=== PATIENT | male | born 1990 | race Caucasian/White ===

== ENCOUNTER 2022-12-05 20:29 | Inpatient (IN) | payer MEDICARE, SELFPAY ==
[2022-12-05 20:37] VITALS: BP 165/99; PULSE 117; RESP 20; TEMP 36.7; O2SAT 100
--- NOTE | 2022-12-05 20:44 | ED.C_ITS ---
HPI - Psych General: Chief Complaint: Psychiatric Symptoms Stated Complaint: aggressive, AMS, bilateral ankle pain Time Seen by Provider: 12/05/22 20:32 Source: patient and family Mode of arrival: ambulatory Limitations: no limitations History of Present Illness: 31-year-old male is brought in by family per family he has a history of bipolar and over the last week he has had much worse psychosis he states that he has been talking to people are not there having hallucinations severe paranoia he states that he has been doing strange things like trying to warm up bullets in the microwave and has been acting totally different than his normal self here he is very avoidant with me he will not answer any questions or really talk to me at this time. Associated symptoms: Reports auditory hallucinations; Deny depression Review of Systems Const: Denies: fever(s), chills, body aches or change in appetite Eyes: Denies: blurry vision or eye discomfort ENMT: Denies: throat pain or dental pain Card: Denies: chest pain Resp: Denies: dyspnea GI: Denies: abdominal pain, nausea, vomiting or diarrhea : Denies: dysuria Musc: Denies: neck pain or back pain Skin/Breast: Denies: rash Neuro: Denies: headache(s) Psych: Reports: mood swings, paranoia and auditory hallucinations; Denies: depression Mikel/Lymph: Denies: easy bruising All/Imm: Denies: urticaria PFSH ED PFSH: Medical History (Updated 12/05/22 @ 21:27 by Peg Devi MD) Bipolar 1 disorder Social History (Updated 12/05/22 @ 20:47 by Peg Devi MD) Substance/Drug Use: never Physical Exam Const: COMMON NORMALS: patient oriented x3 HENMT: COMMON NORMALS: normocephalic and atraumatic HEAD & SCALP: normo cephalic and atraumatic Eye: COMMON NORMALS: Equal, round and reactive pupils present and EOMs intact bilaterally PUPIL: Yes Equal, round and reactive pupils present Neck/C-Spine: COMMON NORMALS: full ROM and supple Chest: COMMONS NORMALS: normal inspection of the chest and normal palpation of entire chest wall Resp: COMMON NORMALS: normal respiratory effort, No retractions, No use of accessory muscles and clear to auscultation bilaterally AUSCULTATION: clear to auscultation bilaterally Cardio: COMMON NORMALS: regular rate, regular rhythm and No murmurs present (Cardio) RATE: regular rate RHYTHM: regular rhythm GI: COMMON NORMALS: Normal to inspection, nondistended, normoactive bowel sounds present, Soft to palpation, non-tender and no masses PALPATION: Yes Soft to palpation Extremity: COMMON NORMALS: normal to inspection and full ROM Neuro: COMMON NORMALS: patient oriented x3, moves all extremities and no focal motor deficits Psych: COMMON NORMALS: cooperative ATTITUDE: Yes Withdrawn affect present and Yes evasive THOUGHT CONTENT: Yes Hallucination(s) present Skin: COMMON NORMALS: no rashes or lesions noted and no wounds GENERAL SKIN EXAM: no rashes or lesions noted Course Vital Signs: Vital signs: Vital Signs Temperature 98.1 F 12/05/22 20:37 Pulse Rate 117 H 12/05/22 20:37 Respiratory Rate 20 H 12/05/22 20:37 Blood Pressure 165/99 12/05/22 20:37 Pulse Oximetry 100 12/05/22 20:37 Oxygen Delivery Me thod 12/05/22 20:37 MDM - Psych Medical Decision Making Patient presents here with acute psychosis he is under 96-hour hold he is medically cleared I spoke to Dr. Acuña and will admit. Lab Data 12/05/22 21:05 12/05/22 21:05 Laboratory Results WBC 11.6 10^3/uL (4.0-10.0) H 12/05/22 21:05 RBC 4.60 10^6/uL (4.1-5.3) 12/05/22 21:05 Hgb 15.1 g/dL (11.7-16.6) 12/05/22 21:05 Hct 42.9 % (42.0-52.0) 12/05/22 21:05 MCV 93.3 fl (80-94) 12/05/22 21:05 MCH 32.8 pg (28.0-34.0) 12/05/22 21:05 MCHC 35.2 g/dL (30.0-36.0) 12/05/22 21:05 RDW 12.8 % (12.1-15.1) 12/05/22 21:05 Plt Count 311 10^3/cmm (130-400) 12/05/22 21:05 MPV 9.3 fL (7.4-10.4) 12/05/22 21:05 Neut % (Auto) 74.9 % 12/05/22 21:05 Lymph % (Auto) 14.5 % 12/05/22 21:05 Sauk % (Auto) 8.8 % 12/05/22 21:05 Eos % (Auto) 0.7 % 12/05/22 21:05 Baso % (Auto) 0.5 % 12/05/22 21:05 Neut # (Auto) 8.71 10^3/uL (1.8-7.7) H 12/05/22 21:05 Lymph # (Auto) 1.7 10^3/uL (0.8-4.8) 12/05/22 21:05 Sauk # (Auto) 1.0 10^3/uL (0.2-0.9) H 12/05/22 21:05 Eos # (Auto) 0.1 10^3/uL (0.0-0.8) 12/05/22 21:05 Baso # (Auto) 0.1 10^3/uL (0.0-0.1) 12/05/22 21:05 Nucleated RBC % (auto) 0 % 12/05/22 21:05 Nucleated RBCs # 0.0 /100WBC 12/05/22 21:05 Sodium 140 mmol/L (136-145) 12/05/22 21:05 Potassium 3.6 mmol/L (3.5-5.1) 12/05/22 21:05 Chloride 103 mmol/L (98-107) 12/05/22 21:05 Carbon Dioxide 22 mmol/L (22-29) 12/05/22 21:05 Anion Gap 18.6 (5-19) 12/05/22 21:05 BUN 11 mg/dL (6-20) 12/05/22 21:05 Creatinine 0.8 mg/dL (0.7-1.2) 12/05/22 21:05 GFR Calculation 114.3 mL/min (90-130) 12/05/22 21:05 Glucose 109 mg/dL (65-115) 12/05/22 21:05 Calculated Osmolality 290 mOsm/kg (285-295) 12/05/22 21:05 Calcium 9.8 mg/dL (8.5-10.5) 12/05/22 21:05 Total Bilirubin 0.2 mg/dL (0.15-1.2) 12/05/22 21:05 AST 37 U/L (0-40) 12/05/22 21:05 ALT 42 U/L (0-41) H 12/05/22 21:05 Alkaline Phosphatase 78 U/L (40-130) 12/05/22 21:05 Total Protein 7.1 g/dL (6.6-8.7) 12/05/22 21:05 Albumin 4.4 g/dL (3.5-5.2) 12/05/22 21:05 Globulin 2.7 g/dL (1.3-4.6) 12/05/22 21:05 Salicylates < 0.3 mg/dL (3-10) L 12/05/22 21:05 Urine Opiates Screen Negative ng/mL (Negative) 12/05/22 21:14 Acetaminophen < 5.0 ug/mL (10-30) L 12/05/22 21:05 Ur Barbiturates Screen Negative ng/mL (Negative) 12/05/22 21:14 Ur Phencyclidine Scrn Negative ng/mL (Negative) 12/05/22 21:14 Ur Amphetamines Screen Negative ng/mL (Negative) 12/05/22 21:14 U Benzodiazepines Scrn Negative ng/mL (Negative) 12/05/22 21:14 Urine Cocaine Screen Negative ng/mL (Negative) 12/05/22 21:14 U Marijuana (THC) Screen Positive ng/mL (Negative) H 12/05/22 21:14 Ethyl Alcohol < 10 mg/dL (0-10) 12/05/22 21:05 Discharge Plan Discharge Patient Disposition: Admitted As Inpatient Clinical Impression: Acute psychosis Coding Level of Care Code ED Lead Generation Marketing Manager for Clive Navarrete
[2022-12-05] MEDS: LORazepam 2 mg/mL INJ 1 mL IM (21:13)
[2022-12-05] MEDS: ziprasidone 20 mg/mL SDV IM (21:13)
[2022-12-05 21:23] LABS: Basophils # 0.1 10^3/uL (0.0-0.1); Basophils % 0.5 %; Eosinophils # 0.1 10^3/uL (0.0-0.8); Eosinophils % 0.7 %; Hematocrit 42.9 % (42.0-52.0); Hemoglobin 15.1 g/dL (11.7-16.6); Lymphocytes # 1.7 10^3/uL (0.8-4.8); Lymphocytes % 14.5 %; Mean Corpuscular HGB Conc 35.2 g/dL (30.0-36.0); Mean Corpuscular Hemoglobin 32.8 pg (28.0-34.0); Mean Corpuscular Volume 93.3 fl (80-94); Mean Platelet Volume 9.3 fL (7.4-10.4); Monocytes % 8.8 %; Neutrophils # 8.71 10^3/uL (1.8-7.7); Neutrophils % 74.9 %; Nucleated Red Blood Cells % 0 %; Platelet Count 311 10^3/cmm (130-400); Red Cell Distribution Width 12.8 % (12.1-15.1); White Blood Count 11.6 10^3/uL (4.0-10.0)
[2022-12-05 21:31] LABS: Amphetamines Screen Urine Negative (Negative); Barbiturates Screen Urine Negative (Negative); Benzodiazepines Screen Urine Negative (Negative); Cocaine Screen Urine Negative (Negative); Opiate Screen Urine Negative (Negative); PCP Screen Urine Negative (Negative); THC Screen Urine Positive (Negative)
[2022-12-05 21:41] LABS: Acetaminophen < 5.0 ug/mL (10-30); Alanine Aminotransferase 42 U/L (0-41); Albumin Level 4.4 g/dL (3.5-5.2); Alcohol Level < 10 mg/dL (0-10); Alkaline Phosphatase 78 U/L (40-130); Anion Gap 18.6 (5-19); Aspartate Amino Transferase 37 U/L (0-40); Blood Urea Nitrogen 11 mg/dL (6-20); Calcium 9.8 mg/dL (8.5-10.5); Carbon Dioxide 22 mmol/L (22-29); Chloride 103 mmol/L (98-107); Globulin 2.7 g/dL (1.3-4.6); Glomerular Filtration Rate 114.3 mL/min (90-130); Glucose 109 mg/dL (65-115); Osmolality Calculated 290 mOsm/kg (285-295); Potassium 3.6 mmol/L (3.5-5.1); Salicylate < 0.3 mg/dL (3-10); Sodium 140 mmol/L (136-145); Total Bilirubin 0.2 mg/dL (0.15-1.2); Total Protein 7.1 g/dL (6.6-8.7)
--- NOTE | 2022-12-05 22:24 | PC.NURSE ---
12/05/22 at 2152 Patient 96 hour Hold Rights read to the patient and a copy of the same were given to him. Security Karen Baker at bedside at the time rights were read.
[2022-12-05 22:51] VITALS: BP 102/61; PULSE 102; RESP 18; O2SAT 99
[2022-12-05 23:06] VITALS: BP 128/80; PULSE 99; RESP 16; O2SAT 98
--- NOTE | 2022-12-05 23:35 | PC.NURSE ---
31yr.old male admitted to room 150-1 with dx of psychosis. Arrived to unit via w/c from ED accompanied by ED staff and security. Patient is involuntary and was given rights and paperwork in ED by housekeeping coordinator Abimbola. Patient sedated from receiving Ativan 2mg and Geodon 20mg IM in ED for aggressive and agitated behavior. Unable to do full admission assessment due to sedation. Patient was changed into NPU scrubs with full assist from staff. No skin issues present and no contraband found. Per MD report from ED family states patient has a history of bipolar. Over the last week patient has been more psychotic and was talking to people that are not there. Family reports severe paranoia as well. Per family patient's behavior has been bizarre including trying to warm up bullets in the microwave. Patient assisted to be by staff.
--- NOTE | 2022-12-06 00:17 | PC.NURSE ---
12/05/22 @ 214Nancy Daily rn, warehouse laborer ready patient rights with security.
[2022-12-06 00:22] VITALS: BP 102/61; PULSE 100; RESP 18
[2022-12-06 06:00] VITALS: BP 146/88; PULSE 116; RESP 19; TEMP 37.2; O2SAT 96
[2022-12-06] MEDS: acetaminophen 325 mg Tablet 650 MG PO (06:40)
[2022-12-06] MEDS: nicotine 21 mg Patch 1 PATCH TRANSDERMA (10:24)
[2022-12-06 14:00] VITALS: BP 136/72; PULSE 104; RESP 18; TEMP 36.7; O2SAT 98
[2022-12-06] MEDS: paliperidone ER 3 mg Tablet PO (17:18)
--- NOTE | 2022-12-06 17:19 | W.PM.NPUH&PS ---
Providers/Chief Complaint Admitting Physician: Monty Acuña MD Chief Complaint: aggressive, AMS, bilateral ankle pain HPI NPU History of Present Illness Aj Donald is a 31 year old male who was admitted after he had presented to the emergency department with his mother. The patient's mother had reported that the patient had been engaging in unusual behavior such as attempting to warm up bullets in the microwave and stated that he was having more hallucinations and an increase in paranoia. Patient was admitted to the neuropsychiatric unit for further evaluation and treatment. The patient had reported that he had been on a routine dose of risperidone Consta 50 mg once every month for helping with his bipolar disorder. He states that he had indeed been seen at the crisis unit 2 days earlier and had been given a prescription for his risperidone on December 03, 2022. He states that he had given himself the shot in his muscle appropriately but states that he does not feel as if the medication has been helping as well. He had endorsed having periods of time where he has high energy and racing thoughts. He had acknowledged that he had been hospitalized several times in the past in [place] and states that he had recently moved here and has not had any providers to help him with his medication. He had reported that his thoughts were moving fast and he had been increasingly angry. He had reported that he had been struggling with sleep recently and endorsed having some abnormal breast growth secondary to his risperidone. He did at times report that he was hearing voices in his head but did not expand on this information. He had reported being very suspicious of other people's intent and reported that he had been having problems with managing his anger recently. He had not endorsed having thoughts of hurting himself or others. Past psychiatric history: He had reported an extensive history of outpatient treatment in [place] for several years with a reported diagnosis of bipolar disorder. He had reported a past history of trials of medication including oral risperidone and oral Abilify. He reported several previous inpatient hospitalizations in [place] for the past several years stating that he had been initially hospitalized at the age of 20 with manic episodes. Current psychiatric medications: Risperidone Consta 50 mg intramuscularly every 4 weeks. Substance abuse history: Patient reports no history of alcohol or illicit drug use. He had endorsed smoking marijuana regularly. Allergies: He has no known drug allergies Surgical history none reported Medical history:none Family psychiatric history: None reported Social history: He reports being born in [facility] and states that he was raised by his mother. He reports that he had no prior history of sexual physical or emotional abuse. He reported having done well in school and graduated high school and attended some college. He had previously reported having been diagnosed with bipolar disorder as a young adult. He reported no history of legal troubles. He reports being previously engaged but never . He states that he is currently not involved in any relationships. He states he has an 11-year-old daughter that lives with her mother. He states previously working on an [employer] but states that he has been on disability for several years. He states that he moved to [place] as his mother is currently residing here. He has siblings that live in [place] and has infrequent contact with them. Meds NPU Home Medications Medication Instructions Recorded Confirmed Last Taken Type risperidone microspheres 50 mg/2 50 mg IM DIRECTED 12/03/22 12/03/22 11/03/22 History mL intramuscular susp,ext release Allergies Allergy/AdvReac Type Severity Reaction Status Date / Time No Known Allergies Allergy Verified 12/03/22 12:27 [facility] NPU PFS: Medical History (Updated 12/05/22 @ 21:27 by Peg Devi MD) Bipolar 1 disorder Social History (Updated 12/05/22 @ 20:47 by Peg Devi MD) Substance/Drug Use: never Mental Status Exam MSE Comments: The patient was casually dressed with normal hygiene and he appeared to be pacing and impatient. There was clear evidence of psychomotor agitation and he was a limited historian. His mood had been described as a bit angry . His affect was mood congruent and irritable with high intensity noted. His thought process was linear and logical. His speech was normal in volume with slight increase in push and normal prosody. There was some grandiosity noted and some overvalued ideas but some paranoia noted. He did not actively appear to be responding to internal stimuli. He denied any auditory or visual hallucinations currently. His insight and judgment were poor. His impulse control appeared limited at this time. His attention span was poor. His recent and remote memory were grossly intact. Vitals/I&O/Wt Last Vital Signs Temp 98.0 F 12/06/22 14:00 Pulse 104 H 12/06/22 14:00 Resp 18 12/06/22 14:00 BP 136/72 12/06/22 14:00 Pulse Ox 98 12/06/22 14:00 O2 Del Method 12/06/22 14:00 Weight last 48 hrs Weight 90.718 kg Data NPU 12/05/22 21:05 12/05/22 21:05 A&P Assessment and plan (1) Acute psychosis: (2) Bipolar 1 disorder: Plan The patient is a 31-year-old male with a history of bipolar disorder admitted with a history of worsening mood increased irritability and agitation and paranoia despite compliance with his current medication regimen. He would likely benefit from continued inpatient hospitalization. #1. Engage patient in individual milieu and group therapy #2 confirm risperidone Consta 50 mg IM was given on 12/03/2022. #3. We will add additional Invega 3 mg daily with a plan to introduce Invega sustain a as an alternative to target agitation and psychosis. #4. Therapeutic observation 15-minute checks on the unit #5. Recommend sober living treatment at the highest level of care to which the patient is willing to commit Involuntary Hold Information 96 Hour Hold: 96 Hour Involuntary Admission: Yes 96 Hour Hold Ending Date: 12/11/22 96 Hour Hold Ending Time: 20:51 Attestations NPU Medical Necessity Statement*: Inpatient hospitalization is medically necessary and deemed to be the clinically appropriate decision at this time. The patient will likely be in the hospital for over 2 midnights with a likely length of stay of 7 to 10 days. Coding Level of Care Code Acute Code for Chg Fwd Diagnoses Acute psychosis F23 Bipolar 1 disorder F31.9
[2022-12-06 21:29] VITALS: BP 127/73; PULSE 105; RESP 18; TEMP 36.8; O2SAT 96
--- NOTE | 2022-12-06 22:15 | PC.NURSE ---
Patient requesting prn for sleep. Trazodone given. Encouraged patient to return to room and try and lay down and relax. Patient did so.
[2022-12-06] MEDS: trazodone 50 mg Tablet PO (22:16)
--- NOTE | 2022-12-07 01:00 | PC.NURSE ---
Patient resting quietly in bed with eyes closed at this time. No signs of distress. Continues with 15 minute safety checks.
[2022-12-07] MEDS: acetaminophen 325 mg Tablet 650 MG PO (02:50)
--- NOTE | 2022-12-07 02:50 | PC.NURSE ---
Patient up in room and is restless. Stated he was wide awake and was having difficulty returning back to sleep. Encouraged patient to turn off lights and lay down. Discussed relaxation techniques. Patient continued to pace in room and then started pacing in halls. Asked patient if he would like medication for anxiety and at first he stated no. After several minutes patient did state he was willing to try Vistaril for anxiety. Rating it at 8/10. Also requested prn tylenol for discomfort in his right leg with a rating of 5/10. Tylenol and vistaril given as ordered. Spent several minutes with patient discussing his concerns. Patient eventually laid down.
[2022-12-07] MEDS: hyDROXYzine 25 mg Capsule 50 MG PO ×2 (02:51→10:54)
--- NOTE | 2022-12-07 04:29 | PC.NURSE ---
Patient resting quietly with eyes closed at this time. No signs of distress noted.
[2022-12-07 06:00] VITALS: BP 136/82; PULSE 116; RESP 17; TEMP 36.5; O2SAT 95
[2022-12-07] MEDS: nicotine 2 mg Gum BUCCAL ×3 (06:36→13:28)
[2022-12-07] MEDS: OLANZapine 5 mg ODT PO (07:23)
[2022-12-07] MEDS: paliperidone ER 3 mg Tablet PO (08:30)
--- NOTE | 2022-12-07 09:21 | PC.NURSE ---
PRN MEDICATION FOR AGITATION/ANXIETY ADMINISTERED TO PT DO TO ANOTHER PATIENT INTRUSIVE BEHAVIOR.
--- NOTE | 2022-12-07 10:50 | PC.NURSE ---
At about 1050, pt appeared agitated; upset he got woke up for group. Staff talked with pt and reminded him attending groups was something they were encouraged to do while they were here. Pt slamemed things, including the toilet seat in the [facility] bathroom. Pt redirected to his room. Medicated for anxiety/agitation. Pt encouraged to attend group but to not be disruptive. He was disruptive. Pt provided with nicotine gum as well. Discussed way to use the gum. He verbalized his understanding.
[2022-12-07] MEDS: haloperidol 5 mg Tablet PO ×2 (10:54→16:46)
--- NOTE | 2022-12-07 13:41 | W.PM.NPUPNS ---
Subjective NPU Subjective: Patient presented today reporting that he was anxious to leave at some level. We discussed the fact that he is on a 96-hour hold. We reviewed the plan that he and Dr. Lora discussed about switching over to Invega as his baseline medication and he understood and agreed to proceed as is documented in this note. Mental Status Exam MSE Comments: This is an overweight versus obese white male in hospital scrubs with adequate grooming and limited eye contact. No abnormal movements except for mild psychomotor agitation. Cooperative with exam in mild distress. Speech was normal rate and volume. Mood described as irritable, affect congruent. Thought process organized. Thought content: Patient denied suicidal or homicidal ideation, there were no delusions reported but some grandiose thinking and paranoia and possible persecutory delusions. He denied auditory visual hallucinations. Attention and concentration appeared intact and memory was somewhat reliable but none were formally tested. He is alert and oriented x3. Insight judgment and impulse control limited. Vitals/I&O/Wt Last Vital Signs Temp 97.7 F 12/07/22 06:00 Pulse 116 H 12/07/22 06:00 Resp 17 12/07/22 06:00 BP 136/82 12/07/22 06:00 Pulse Ox 95 12/07/22 06:00 O2 Del Method 12/07/22 06:00 Data NPU 12/05/22 21:05 12/05/22 21:05 A&P Assessment and plan (1) Acute psychosis: (2) Bipolar 1 disorder: Plan The patient is a 31-year-old male with a history of bipolar disorder admitted with a history of worsening mood increased irritability and agitation and paranoia despite compliance with his current medication regimen. He would likely benefit from continued inpatient hospitalization. #1. Engage patient in individual milieu and group therapy #2 confirm risperidone Consta 50 mg IM was given on 12/03/2022. #3. We will add additional Invega 3 mg daily with a plan to introduce Invega Sustenna a as an alternative to target agitation and psychosis. #4. Therapeutic observation 15-minute checks on the unit #5. Recommend sober living treatment at the highest level of care to which the patient is willing to commit Involuntary Hold Information 96 Hour Hold: 96 Hour Involuntary Admission: Yes 96 Hour Hold Ending Date: 12/11/22 96 Hour Hold Ending Time: 20:51 Attestations NPU Medical Necessity Statement*: Inpatient hospitalization is medically necessary and deemed to be the clinically appropriate decision at this time. We will monitor/initiate medications and make changes as indicated. Likely length of stay of 7 to 10 days. Coding Level of Care Code Acute Code for Chg Fwd Diagnoses Acute psychosis F23 Bipolar 1 disorder F31.9
[2022-12-07 14:00] VITALS: BP 132/79; PULSE 96; RESP 16; TEMP 36.7; O2SAT 97
[2022-12-07] MEDS: diphenhydrAMINE 50 mg Capsule PO (16:46)
[2022-12-07] MEDS: LORazepam 2 mg Tablet PO (16:46)
--- NOTE | 2022-12-07 18:11 | PC.NURSE ---
Pt's mom came to visit him at 1500. They sat in the day room and within five minutes pt was yelling. Staff investigated and informed the pt and visitor, such time was supposed to be therapeutic and if the visit couldn't be conducted appropriately, the visitor would need to leave. By 1515, the pt was again speaking very loudly and seemed to be yelling at his mom rather than engaging with her so the visitor was asked to leave. She and the pt complied. Pt remained agitated; received medication and rested in bed..
[2022-12-07 19:48] VITALS: BP 122/77; PULSE 88; RESP 18; TEMP 36.7; O2SAT 98
[2022-12-08] MEDS: nicotine 2 mg Gum BUCCAL ×4 (02:25→23:26)
--- NOTE | 2022-12-08 02:25 | PC.NURSE ---
Opened vistaril 50mg that patient requested and Zyprexa 5mg for agitation. Patient calmed down and refused both meds.
[2022-12-08 06:00] VITALS: BP 102/72; PULSE 129; RESP 20; TEMP 36.3; O2SAT 98
[2022-12-08] MEDS: paliperidone ER 3 mg Tablet PO (09:16)
--- NOTE | 2022-12-08 11:51 | W.PM.NPUPNS ---
Subjective NPU Subjective: Patient presented today reporting that he is doing okay. We continue to discuss the plan to switch over to Invega. He is endorsing that he is starting to feel the medication getting better. We discussed the possibility of increasing the Invega to 6 mg tomorrow and considering the Invega Sustenna injection on Saturday. Otherwise he denied any new or pressing issues. Mental Status Exam MSE Comments: This is an overweight versus obese white male in hospital scrubs with adequate grooming and limited eye contact. No abnormal movements except for mild psychomotor agitation. Cooperative with exam in mild distress. Speech was normal rate and volume. Mood described as irritable, affect congruent. Thought process organized. Thought content: Patient denied suicidal or homicidal ideation, there were no delusions reported but less grandiose thinking, paranoia and possible persecutory delusions. He denied auditory visual hallucinations. Attention and concentration appeared intact and memory was somewhat reliable but none were formally tested. He is alert and oriented x3. Insight judgment and impulse control limited. Vitals/I&O/Wt Last Vital Signs Temp 97.3 F L 12/08/22 06:00 Pulse 129 H 12/08/22 06:00 Resp 20 H 12/08/22 06:00 BP 102/72 12/08/22 06:00 Pulse Ox 98 12/08/22 06:00 O2 Del Method 12/08/22 06:00 Data NPU 12/05/22 21:05 12/05/22 21:05 A&P Assessment and plan (1) Acute psychosis: (2) Bipolar 1 disorder: Plan The patient is a 31-year-old male with a history of bipolar disorder admitted with a history of worsening mood increased irritability and agitation and paranoia despite compliance with his current medication regimen. He would likely benefit from continued inpatient hospitalization. #1. Engage patient in individual milieu and group therapy #2 confirm risperidone Consta 50 mg IM was given on 12/03/2022. #3. We will add additional Invega 3 mg daily with a plan to introduce Invega Sustenna a as an alternative to target agitation and psychosis. #4. Therapeutic observation 15-minute checks on the unit #5. Recommend sober living treatment at the highest level of care to which the patient is willing to commit Involuntary Hold Information 96 Hour Hold: 96 Hour Involuntary Admission: Yes 96 Hour Hold Ending Date: 12/11/22 96 Hour Hold Ending Time: 20:51 Attestations NPU Medical Necessity Statement*: Inpatient hospitalization is medically necessary and deemed to be the clinically appropriate decision at this time. We will monitor/initiate medications and make changes as indicated. Likely length of stay of 6 to 9 days. Coding Level of Care Code Acute Code for Chg Fwd Diagnoses Acute psychosis F23 Bipolar 1 disorder F31.9
[2022-12-08 14:00] VITALS: BP 121/69; PULSE 85; RESP 16; TEMP 36.6; O2SAT 98
[2022-12-08] MEDS: benzocaine 20% 7 gm 1 APPLIC MUCOUS MEM (17:35)
[2022-12-08 20:00] VITALS: BP 129/61; PULSE 100; RESP 20; TEMP 36.7; O2SAT 96
[2022-12-08] MEDS: hyDROXYzine 25 mg Capsule 50 MG PO (22:49)
[2022-12-08] MEDS: trazodone 50 mg Tablet PO (22:49)
[2022-12-09] MEDS: OLANZapine 5 mg ODT PO (00:27)
[2022-12-09] MEDS: nicotine 2 mg Gum BUCCAL ×7 (01:40→18:47)
[2022-12-09 06:00] VITALS: BP 136/82; PULSE 102; RESP 18; TEMP 36.6; O2SAT 99
[2022-12-09] MEDS: benzocaine 20% 7 gm 1 APPLIC MUCOUS MEM ×2 (07:50→19:51)
[2022-12-09] MEDS: paliperidone ER 3 mg Tablet PO ×2 (07:50→11:25)
--- NOTE | 2022-12-09 07:50 | PC.NURSE ---
orajel 1 application applied to tooth for c/o pain
[2022-12-09 14:00] VITALS: BP 117/80; PULSE 100; RESP 20; TEMP 36.6; O2SAT 97
--- NOTE | 2022-12-09 17:17 | W.PM.NPUPNS ---
Subjective NPU Subjective: Patient presented today reporting clear improvement in how he is thinking. Reporting that his perceptual disturbances seem to have greatly diminished and he feels like he is more himself. We discussed getting clarification on the pharmacokinetics of the Invega Sustenna given the last time the Risperdal Consta was given. He denied any issues taking the increased to 6 mg of Invega. Mental Status Exam MSE Comments: This is an overweight versus obese white male in hospital scrubs with adequate grooming and limited eye contact. No abnormal movements. Cooperative with exam in no acute distress. Speech was normal rate and volume. Mood described as better, affect congruent. Thought process organized. Thought content: Patient denied suicidal or homicidal ideation, there were no delusions reported or noted. He denied auditory visual hallucinations. Attention and concentration appeared intact and memory was somewhat reliable but none were formally tested. He is alert and oriented x3. Insight judgment and impulse control limited, but improving. Vitals/I&O/Wt Last Vital Signs Temp 97.5 F L 12/09/22 20:38 Pulse 101 H 12/09/22 20:38 Resp 20 H 12/09/22 20:38 BP 125/63 12/09/22 20:38 Pulse Ox 97 12/09/22 20:38 O2 Del Method 12/09/22 20:38 Weight last 48 hrs Weight 95.799 kg Data NPU 12/05/22 21:05 12/05/22 21:05 A&P Assessment and plan (1) Acute psychosis: (2) Bipolar 1 disorder: Plan The patient is a 31-year-old male with a history of bipolar disorder admitted with a history of worsening mood increased irritability and agitation and paranoia despite compliance with his current medication regimen. He would likely benefit from continued inpatient hospitalization. #1. Engage patient in individual milieu and group therapy #2 confirm risperidone Consta 50 mg IM was given on 12/03/2022. #3. We added additional Invega 3 mg daily and increased to 6 mg with a plan to introduce Invega Sustenna a as an alternative to target agitation and psychosis possibly tomorrow. #4. Therapeutic observation 15-minute checks on the unit #5. Recommend sober living treatment at the highest level of care to which the patient is willing to commit Involuntary Hold Information 96 Hour Hold: 96 Hour Involuntary Admission: Yes 96 Hour Hold Ending Date: 12/11/22 96 Hour Hold Ending Time: 20:51 Attestations NPU Medical Necessity Statement*: Inpatient hospitalization is medically necessary and deemed to be the clinically appropriate decision at this time. We will monitor/initiate medications and make changes as indicated. Likely length of stay of 3-5 days. Coding Level of Care Code Acute Code for Chg Fwd Diagnoses Acute psychosis F23 Bipolar 1 disorder F31.9
--- NOTE | 2022-12-09 19:55 | PC.NURSE ---
PRN oraljel given as ordered per pt request.
[2022-12-09 20:38] VITALS: BP 125/63; PULSE 101; RESP 20; TEMP 36.4; O2SAT 97
[2022-12-10] MEDS: nicotine 2 mg Gum BUCCAL ×8 (02:28→18:01)
[2022-12-10] MEDS: benzocaine 20% 7 gm 1 APPLIC MUCOUS MEM (05:52)
[2022-12-10 06:00] VITALS: BP 128/76; PULSE 100; RESP 18; TEMP 36.4; O2SAT 100
[2022-12-10] MEDS: paliperidone ER 3 mg Tablet 6 MG PO (08:00)
[2022-12-10 14:00] VITALS: BP 124/80; PULSE 110; RESP 18; TEMP 36.6; O2SAT 98
--- NOTE | 2022-12-10 17:58 | P.NPUPN_ITS ---
Subjective NPU Subjective: Patient presented today reporting that he was feeling better with the Invega. We discussed paliperidone and its relationship to respite all. We discussed the Invega Sustenna injection and progression to the Invega Hafyera. We discussed the risk benefits and alternatives of him having his first loading dose of Invega Sustenna 234 mg IM and he understood and agreed to proceed as is documented in this note. We discussed discharge tomorrow with a plan for follow-up with his next injection due next Saturday. Mental Status Exam MSE Comments: This is an overweight versus obese white male in hospital scrubs with adequate grooming and limited eye contact. No abnormal movements. Cooperative with exam in no acute distress. Speech was normal rate and volume. Mood described as better, affect congruent. Thought process organized. Thought content: Patient denied suicidal or homicidal ideation, there were no delusions reported or noted. He denied auditory visual hallucinations. Attention and concentration appeared intact and memory was reliable but none were formally tested. He is alert and oriented x3. Insight judgment and impulse control improving. Vitals/I&O/Wt Last Vital Signs Temp 98.1 F 12/10/22 20:28 Pulse 97 12/10/22 20:28 Resp 16 12/10/22 20:28 BP 146/80 12/10/22 20:28 Pulse Ox 99 12/10/22 20:28 O2 Del Method 12/10/22 06:00 Data NPU 12/05/22 21:05 12/05/22 21:05 A&P Assessment and plan (1) Acute psychosis: (2) Bipolar 1 disorder: Plan The patient is a 31-year-old male with a history of bipolar disorder admitted with a history of worsening mood increased irritability and agitation and p aranoia despite compliance with his current medication regimen. He would likely benefit from continued inpatient hospitalization. #1. Engage patient in individual milieu and group therapy #2 confirm risperidone Consta 50 mg IM was given on 12/03/2022. #3. We added additional Invega 3 mg daily and increased to 6 mg with a plan to introduce Invega Sustenna 234 mg IM loading dose to the deltoid today. #4. Therapeutic observation 15-minute checks on the unit #5. Recommend sober living treatment at the highest level of care to which the patient is willing to commit Involuntary Hold Information 96 Hour Hold: 96 Hour Involuntary Admission: Yes 96 Hour Hold Ending Date: 12/11/22 96 Hour Hold Ending Time: 20:51 Attestations NPU Medical Necessity Statement*: Inpatient hospitalization is medically necessary and deemed to be the clinically appropriate decision at this time. We will monitor/initiate medications and make changes as indicated. Likely length of stay of 1-3 days. Coding Level of Care Code Acute Code for Chg Fwd Diagnoses Acute psychosis F23 Bipolar 1 disorder F31.9
[2022-12-10] MEDS: paliperidone palmitate 234 mg Syringe IM (19:50)
[2022-12-10 20:28] VITALS: BP 146/80; PULSE 97; RESP 16; TEMP 36.7; O2SAT 99
[2022-12-11] MEDS: nicotine 2 mg Gum BUCCAL ×4 (03:14→10:29)
[2022-12-11 06:00] VITALS: BP 135/78; PULSE 121; RESP 20; TEMP 36.6; O2SAT 98
--- NOTE | 2022-12-11 09:02 | P.NPUDS_ITS ---
Diagnoses at Discharge Discharge Diagnosis (1) Acute psychosis: Status: Resolved (2) Bipolar 1 disorder: Status: Acute Reason for Visit Reason for Visit: aggressive, AMS, bilateral ankle pain Brief History: History of Present Illness Aj Donald is a 31 year old male who was admitted after he had presented to the emergency department with his mother. The patient's mother had reported that the patient had been engaging in unusual behavior such as attempting to warm up bullets in the microwave and stated that he was having more hallucinations and an increase in paranoia. Patient was admitted to the neuropsychiatric unit for further evaluation and treatment. The patient had reported that he had been on a routine dose of risperidone Consta 50 mg once every month for helping with his bipolar disorder. He states that he had indeed been seen at the crisis unit 2 days earlier and had been given a prescription for his risperidone on December 03, 2022. He states that he had given himself the shot in his muscle appropriately but states that he does not feel as if the medication has been helping as well. He had endorsed having periods of time where he has high energy and racing thoughts. He had acknowledged that he had been hospitalized several times in the past in [place] and states that he had recently moved here and has not had any providers to help him with his medication. He had reported that his thoughts were moving fast and he had been increasingly angry. He had reported that he had been struggling with sleep recently and endorsed having some abnormal breast growth secondary to his risperidone. He did at times report that he was hearing voices in his head but did not expand on this information. He had reported being very suspicious of other people's intent and reported that he had been having problems with managing his anger recently. He had not endorsed having thoughts of hurting himself or others. Past psychiatric history: He had reported an extensive history of outpatient treatment in [place] for several years with a reported diagnosis of bipolar disorder. He had reported a past history of trials of medication including oral risperidone and oral Abilify. He reported several previous inpatient hospitalizations in [place] for the past several years stating that he had been initially hospitalized at the age of 20 with manic episodes. Current psychiatric medications: Risperidone Consta 50 mg intramuscularly every 4 weeks. Substance abuse history: Patient reports no history of alcohol or illicit drug use. He had endorsed smoking marijuana regularly. Allergies: He has no known drug allergies Surgical history none reported Medical history:none Family psychiatric history: None reported Social history: He reports being born in [facility] and states that he was raised by his mother. He reports that he had no prior history of sexual physical or emotional abuse. He reported having done well in school and graduated high school and attended some college. He had previously reported having been diagnosed with bipolar disorder as a young adult. He reported no history of legal troubles. He reports being previously engaged but never . He states that he is currently not involved in any relationships. He states he has an 11-year-old daughter that lives with her mother. He states previously working on an [employer] but states that he has been on disability for several years. He states that he moved to [place] as his mother is currently residing here. He has siblings that live in [place] and has infrequent contact with them. Hospital Course Hospital Course He slowly acclimated to the individual, group and milieu therapies provided.? He presented with psychosis and poor success with Consta. We transitioned him to invega and ultimately Invega sustenna with good response. He was able to work with the treatment team to assist with outpatient resources.? He had significant improvement and was able to contract for safety, outside the hospital prior to discharge.? During the hospitalization, patient had routine laboratory studies which were within normal limits except for few outliers.? Additionally there was a general medical evaluation which was also within normal limits and revealed no new acute processes. Discharge Summary: At the time of discharge, he denied psychosis or lethality.? Mood and anxiety were well managed.? Patient endorsed a plan to avoid all drugs of abuse and follow-up with the aftercare recommendations of the treatment team.? Patient was evaluated and deemed to be absent credible lethality, and had achieved the maximum benefit from an inpatient hospitalization, so was discharged. Involuntary Hold Information 96 Hour Hold: 96 Hour Involuntary Admission: Yes 96 Hour Hold Ending Date: 12/11/22 96 Hour Hold Ending Time: 20:51 Mental Status Exam MSE Comments: This is an overweight versus obese white male in hospital scrubs with adequate grooming and limited eye contact. No abnormal movements. Cooperative with exam in no acute distress. Speech was normal rate and volume. Mood described as better, affect congruent. Thought process organized. Thought content: Patient denied suicidal or homicidal ideation, there were no delusions reported or noted. He denied auditory visual hallucinations. Attention and concentration appeared intact and memory was reliable but none were formally tested. He is alert and oriented x3. Insight judgment and impulse control improving. Discharge Data Studies Completed and Pending: Laboratory Results WBC 11.6 10^3/uL (4.0 -10.0) H 12/05/22 21:05 RBC 4.60 10^6/uL (4.1 -5.3) 12/05/22 21:05 Hgb 15.1 g/dL (11.7-1 6.6) 12/05/22 21:05 Hct 42.9 % (42.0-52.0 ) 12/05/22 21:05 MCV 93.3 fl (80-94) 12/05/22 21: MCH 32.8 pg (28.0-34. 0) 12/05/22 21:05 MCHC 35.2 g/dL (30.0-3 6.0) 12/05/22 21:05 RDW 12.8 % (12.1-15.1 ) 12/05/22 21:05 Plt Count 311 10^3/cmm (130 -400) 12/05/22 21:05 MPV 9.3 fL (7.4-10.4) 12/05/22 21:05 Neut % (Auto) 74.9 % 12/05/22 21: Lymph % (Auto) 14.5 % 12/05/22 21:05 [place] % (Auto) 8.8 % 12/05/22 21:05 Eos % (Auto) 0.7 % 12/05/22 21:05 Baso % (Auto) 0.5 % 12/05/22 21:05 Neut # (Auto) 8.71 10^3/uL (1.8 -7.7) H 12/05/22 21:05 Lymph # (Auto) 1.7 10^3/uL (0.8- 4.8) 12/05/22 21:05 [place] # (Auto) 1.0 10^3/uL (0.2- 0.9) H 12/05/22 21:05 Eos # (Auto) 0.1 10^3/uL (0.0- 0.8) 12/05/22 21:05 Baso # (Auto) 0.1 10^3/uL (0.0- 0.1) 12/05/22 21:05 Nucleated RBC % (a uto) 0 % 12/05/22 21:05 Nucleated RBCs # 0.0 /100WBC 12/05/22 21:05 Sodium 140 mmol/L (136-1 45) 12/05/22 21:05 Potassium 3.6 mmol/L (3.5-5 .1) 12/05/22 21:05 Chloride 103 mmol/L (98-10 7) 12/05/22 21:05 Carbon Dioxide 22 mmol/L (22-29) 12/05/22 21:05 Anion Gap 18.6 (5-19) 12/05/22 21:05 BUN 11 mg/dL (6-20) 12/05/22 21:05 Creatinine 0.8 mg/dL (0.7-1. 2) 12/05/22 21:05 GFR Calculation 114.3 mL/min (90- 130) 12/05/22 21:05 Glucose 109 mg/dL (65-115 ) 12/05/22 21:05 Calculated Osmolal ity 290 mOsm/kg (285- 295) 12/05/22 21:05 Calcium 9.8 mg/dL (8.5-10 .5) 12/05/22 21:05 Total Bilirubin 0.2 mg/dL (0.15-1 .2) 12/05/22 21:05 AST 37 U/L (0-40) 12/05/22 21:05 ALT 42 U/L (0-41) H 12/05/22 21:05 Alkaline Phosphata se 78 U/L (40-130) 12/05/22 21:05 Total Protein 7.1 g/dL (6.6-8.7 ) 12/05/22 21:05 Albumin 4.4 g/dL (3.5-5.2 ) 12/05/22 21:05 Globulin 2.7 g/dL (1.3-4.6 ) 12/05/22 21:05 Salicylates < 0.3 mg/dL (3-10 ) L 12/05/22 21:05 Urine Opiates Scre en Negative ng/mL (N egative) 12/05/22 21:14 Acetaminophen < 5.0 ug/mL (10-3 0) L 12/05/22 21:05 Ur Barbiturates Sc reen Negative ng/mL (N egative) 12/05/22 21:14 Ur Phencyclidine S crn Negative ng/mL (N egative) 12/05/22 21:14 Ur Amphetamines Sc reen Negative ng/mL (N egative) 12/05/22 21:14 U Benzodiazepines Scrn Negative ng/mL (N egative) 12/05/22 21:14 Urine Cocaine Scre en Negative ng/mL (N egative) 12/05/22 21:14 U Marijuana (THC) Screen Positive ng/mL (N egative) H 12/05/22 21:14 Ethyl Alcohol < 10 mg/dL (0-10) 12/05/22 21:05 Vitals: Last Vital Signs Temp 97.8 F 12/11/22 06:00 Pulse 121 H 12/11/22 06:00 Resp 20 H 12/11/22 06:00 BP 135/78 12/11/22 06:00 Pulse Ox 98 12/11/22 06:00 O2 Del Method 12/10/22 06:00 Discharge Plan Discharge Patient Disposition: Home Condition: Stable Prescriptions: New Invega Sustenna 156 mg/mL syringe 156 mg IM Q30D Qty: 1 2RF Rx Instructions: Next injection 12/17/2022 loading dose IM deltoid. Then 01/14/2023 then as directed monthly Discontinued risperidone microspheres 50 mg/2 mL Suspension,Extended Rel Recon 50 mg IM DIRECTED Rx Instructions: 50 mg Risperidone Q month Discharge Orders: Discharge Order (Routine); Ordered 12/11/22 Ordered By: Monty Acuña Referrals: [facility] [Outside] - 12/17/22 2:30 pm (With Miguel Huber) Discharge Diet: Regular Discharge Activity: Resume usual activity Patient Instructions: Depression (DC), Anxiety (DC), Opioid Safety Discharge Attestations NPU Time Spent in Discharge Care*: less than 30 min Specific Discharge Activities: Specific discharge activities: educating patient, discussing with complex case manager/social workers/dc planners, documenting/other paperwork and evaluating patient/reviewing data Coding Level of Care Code Acute Chg FW DC note Diagnoses Acute psychosis F23 Bipolar 1 disorder F31.9
--- NOTE | 2022-12-11 10:17 | DCPLANNER ---
IMM completed 12/11/22 @ 1010. Pt was given a copy of rights and he stated he understood his rights.
[2022-12-11 10:23] VITALS: BP 135/78; PULSE 121; RESP 20; TEMP 36.6; O2SAT 98
--- NOTE | 2022-12-11 13:11 | PC.NURSE ---
discharge instruction discussed with patient. pt verbalized understanding and compliance. pt reviewed and approved that personal belonging returned to patient as correct. pt left via parent and pov.
== END 2022-12-11 12:42 | disposition home or self-care (01) | DRG 885 ==
LOC: ER 21:27 → NP 22:16
PROVIDERS: Admitting Provider Psychiatry & Neurology Psychiatry; Emergency Provider Emergency Medicine; Visit Provider Psychiatry & Neurology Psychiatry
DX: F31.9 Bipolar disorder, unspecified (principal)
CPT/HCPCS: 36415; 80053; 80306; 80307; 85025; 96372; 97150; 97165; 99238; 99285; J2060; J3486; Q0163

== ENCOUNTER 2023-01-06 22:29 | Inpatient (IN) | payer MEDICARE, SELFPAY ==
[2023-01-06 22:45] VITALS: BMI 30.1
--- NOTE | 2023-01-06 23:04 | PC.NURSE ---
Pt arrives in handcuffs by police. ER has not placed restraints on this pt. Cuffs removed by officers. NO further restraint required at this time.
[2023-01-06] MEDS: ziprasidone 20 mg/mL SDV IM (23:20)
[2023-01-06] MEDS: LORazepam 2 mg/mL INJ 1 mL IM (23:20)
[2023-01-06 23:41] LABS: Bilirubin Urine Neg (Negative); Blood Urine Neg (Negative); Glucose Urine UA Norm (Normal); Ketones Urine Negative (Negative); Leukocyte Esterase Urine Negative (Negative); Nitrate Urine Negative (Negative); Protein Urine Neg (Negative); Renal Epithelial Cells Urine 1 /hpf; Specific Gravity, Urine 1.005 (1.005-1.030); Squamous Epithelial Cell Urine 0-4 /hpf (0-5); Urine Appearance Clear (CLEAR); Urine Color Colorless (Yellow); Urobilinogen Urine Norm (Negative); WBC Urine 0-4 /hpf (0-5); pH Urine 5 (5-7)
[2023-01-06 23:42] LABS: Oval Fat Bodies Urine TRACE /hpf
[2023-01-06 23:43] LABS: Amphetamines Screen Urine Negative (Negative); Barbiturates Screen Urine Negative (Negative); Benzodiazepines Screen Urine Negative (Negative); Cocaine Screen Urine Negative (Negative); Opiate Screen Urine Negative (Negative); PCP Screen Urine Negative (Negative); THC Screen Urine Positive (Negative)
[2023-01-06 23:44] VITALS: BP 140/104; PULSE 98; RESP 16; TEMP 36.7; O2SAT 100
[2023-01-07 00:03] VITALS: BP 138/70; PULSE 69; RESP 15; O2SAT 100
--- NOTE | 2023-01-07 00:15 | PC.NURSE ---
Pt asleep on his left side on [facility]. PSA at bedside.
--- NOTE | 2023-01-07 00:28 | W.ED.PSYCHS ---
HPI - Psych General: Chief Complaint: Psychiatric Symptoms Stated Complaint: psychiatric Time Seen by Provider: 01/06/23 22:34 Source: patient and police History of Present Illness: 32-year-old male with a history of bipolar disorder. He had a recent admission after a manic episode. He required sedation in the ER, along with psychiatric evaluation and treatment. He presents tonight in handcuffs with law enforcement after an episode of throwing stuff around a family member's house. When law enforcement showed up, he evidently asked that lawn care specialist to shoot him and kill him. Police have written affidavit and so has his mother. On my interview, he will not answer questions for me. He says to me I am not your rell . MD complaint: suicidal ideation Onset (ago): hour(s) Duration: constant History of same: Yes Relieving factors: none Exacerbating factors: none Associated psychiatric symptoms: depression and suicidal ideation Associated symptoms: Reports delusions, depression and suicidal ideation; Deny auditory hallucinations, visual hallucinations or homicidal ideation If self harm: admits thoughts of self harm and has plan Review of Systems General: Reports: ROS unobtainable due to medical condition Psych: Reports: depression and suicidal ideation; Denies: visual hallucinations, auditory hallucinations or homicidal ideation PFS ED PFSH: Medical History Bipolar 1 disorder Psychiatric care Social History Substance/Drug Use: never Physical Exam Const: COMMON NORMALS: alert GENERAL APPEARANCE: not ill appearing and not frail appearing NUTRITIONAL APPEARANCE: overweight ORIENTATION/CONSCIOUSNESS: Yes awake, Yes oriented to person and Yes oriented to place HENMT: COMMON NORMALS: normocephalic, atraumatic and Normal external nose present HEAD & SCALP: normocephalic and atraumatic FACE & SINUS: normal facial exam and face symmetric NOSE: Normal external nose present Eye: COMMON NORMALS: Equal, round and reactive pupils present and EOMs intact bilaterally PUPIL: Yes Equal, round and reactive pupils present Neck/C-Spine: GENERAL: Yes trachea midline Chest: CHEST: Yes Symmetrical chest wall rise Resp: COMMON NORMALS: normal respiratory effort and No use of accessory muscles Cardio: COMMON NORMALS: regular rate and regular rhythm RATE: regular rate RHYTHM: regular rhythm GI: INSPECTION: Yes normal to inspection Neuro: SENSORIUM/ORIENTATION: Yes alert, Yes oriented to person and Yes oriented to place Psych: APPEARANCE: Yes grossly normal ATTITUDE: Yes uncooperative, Yes agitated and Yes aggressive SPEECH: Yes rapid MOOD & AFFECT: Yes irritable THOUGHT PROCESS: Circumstantial thought process present THOUGHT CONTENT: Yes delusions INSIGHT: Limited insight present (Psych) JUDGEMENT: Limited judgement present (Psych) Skin: COMMON NORMALS: no wounds Face to Face: Restrn/Seclusion Events leading up to initiation: Verbalizing threat to self or others Evaluation of patient's immediate situation: Alert and oriented, No signs of physical distress and Signs of psychological distress Patient reaction since intervention applied: De-escalation/no displays of violent/destructive behavior Recent labs reviewed: Yes Review of medications: Yes Patient's current medical/behavioral condition: No new concerns since last ROS Need for restraint or seclusion is: No longer present Attending notified: Attending completed assessment Course Vital Signs: Vital signs: Vital Signs Temperature 98.0 F 01/06/23 23:44 Pulse Rate 69 01/07/23 02:16 Respiratory Rate 15 01/07/23 02:16 Blood Pressure 138/70 01/07/23 02:16 Pulse Oximetry 100 01/07/23 02:16 Oxygen Delivery Me thod Room Air 01/07/23 00:03 MDM - Psych Medical Decision Making Patient was given a dose of IM ketamine followed by Geodon and Ativan intramuscularly as well. He is now resting comfortably. His vitals have been stable. This was done shortly after the patient's arrival, given his prior history of combativeness in the ER, as well as his verbal statements both law enforcement and staff members in the ER. Medically, he is quite stable. Spoke with psychiatry. They are willing to admit. He will be placed under 96-hour hold. Affidavits have been written. Lab Data 01/07/23 00:35 01/07/23 00:35 Laboratory Results WBC 7.6 10^3/uL (4.0-10.0) 01/07/23 00:35 RBC 4.81 10^6/uL (4.1-5.3) 01/07/23 00:35 Hgb 15.3 g/dL (11.7-16.6) 01/07/23 00:35 Hct 45.4 % (42.0-52.0) 01/07/23 00:35 MCV 94.4 fl (80-94) H 01/07/23 00:35 MCH 31.8 pg (28.0-34.0) 01/07/23 00:35 MCHC 33.7 g/dL (30.0-36.0) 01/07/23 00:35 RDW 12.5 % (12.1-15.1) 01/07/23 00:35 Plt Count 307 10^3/cmm (130-400) 01/07/23 00:35 MPV 9.1 fL (7.4-10.4) 01/07/23 00:35 Neut % (Auto) 66.7 % 01/07/23 00:35 Lymph % (Auto) 19.1 % 01/07/23 00:35 [place] % (Auto) 12.3 % 01/07/23 00:35 Eos % (Auto) 0.5 % 01/07/23 00:35 Baso % (Auto) 0.7 % 01/07/23 00:35 Neut # (Auto) 5.07 10^3/uL (1.8-7.7) 01/07/23 00:35 Lymph # (Auto) 1.5 10^3/uL (0.8-4.8) 01/07/23 00:35 [place] # (Auto) 0.9 10^3/uL (0.2-0.9) 01/07/23 00:35 Eos # (Auto) 0.0 10^3/uL (0.0-0.8) 01/07/23 00:35 Baso # (Auto) 0.1 10^3/uL (0.0-0.1) 01/07/23 00:35 Nucleated RBC % (auto) 0 % 01/07/23 00:35 Nucleated RBCs # 0.0 /100WBC 01/07/23 00:35 Sodium 136 mmol/L (136-145) 01/07/23 00:35 Potassium 3.9 mmol/L (3.5-5.1) 01/07/23 00:35 Chloride 103 mmol/L (98-107) 01/07/23 00:35 Carbon Dioxide 20 mmol/L (22-29) L 01/07/23 00:35 Anion Gap 16.9 (5-19) 01/07/23 00:35 BUN 7 mg/dL (6-20) 01/07/23 00:35 Creatinine 0.7 mg/dL (0.7-1.2) 01/07/23 00:35 GFR Calculation 132.4 mL/min (90-130) H 01/07/23 00:35 Glucose 80 mg/dL (65-115) 01/07/23 00:35 Calculated Osmolality 279 mOsm/kg (285-295) L 01/07/23 00:35 Calcium 9.3 mg/dL (8.5-10.5) 01/07/23 00:35 Total Bilirubin 0.4 mg/dL (0.15-1.2) 01/07/23 00:35 AST 21 U/L (0-40) 01/07/23 00:35 ALT 26 U/L (0-41) 01/07/23 00:35 Alkaline Phosphatase 81 U/L (40-130) 01/07/23 00:35 Total Protein 7.2 g/dL (6.6-8.7) 01/07/23 00:35 Albumin 4.4 g/dL (3.5-5.2) 01/07/23 00:35 Globulin 2.8 g/dL (1.3-4.6) 01/07/23 00:35 Urine Color Colorless (Yellow) 01/06/23 23:10 Urine Appearance Clear (CLEAR) 01/06/23 23:10 Urine pH 5 (5-7) 01/06/23 23:10 Ur Specific [place] 1.005 (1.005-1.030) 01/06/23 23:10 Urine Protein Neg (Negative) 01/06/23 23:10 Urine Glucose (UA) Norm (Normal) 01/06/23 23:10 Urine Ketones Negative (Negative) 01/06/23 23:10 Urine Blood Neg (Negative) 01/06/23 23:10 Urine Nitrate Negative (Negative) 01/06/23 23:10 Urine Bilirubin Neg (Negative) 01/06/23 23:10 Urine Urobilinogen Norm mg/dL (Negative) 01/06/23 23:10 Ur Leukocyte Esterase Negative (Negative) 01/06/23 23:10 Urine RBC None /hpf (0-2) 01/06/23 23:10 Urine WBC 0-4 /hpf (0-5) H 01/06/23 23:10 Ur Squamous Epith Cells 0-4 /hpf (0-5) H 01/06/23 23:10 Ur Renal Epithelial Cell 1 /hpf 01/06/23 23:10 Amorphous Sediment Not Reportable 01/06/23 23:10 Urine Bacteria None /hpf (NONE) 01/06/23 23:10 Ur Oval Fat Bodies Trace /hpf 01/06/23 23:10 Salicylates 4.3 mg/dL (3-10) 01/07/23 00:35 Urine Opiates Screen Negative ng/mL (Negative) 01/06/23 23:10 Acetaminophen < 5.0 ug/mL (10-30) L 01/07/23 00:35 Ur Barbiturates Screen Negative ng/mL (Negative) 01/06/23 23:10 Ur Phencyclidine Scrn Negative ng/mL (Negative) 01/06/23 23:10 Ur Amphetamines Screen Negative ng/mL (Negative) 01/06/23 23:10 U Benzodiazepines Scrn Negative ng/mL (Negative) 01/06/23 23:10 Urine Cocaine Screen Negative ng/mL (Negative) 01/06/23 23:10 U Marijuana (THC) Screen Positive ng/mL (Negative) H 01/06/23 23:10 Ethyl Alcohol < 10 mg/dL (0-10) 01/07/23 00:35 Discharge Plan Discharge Patient Disposition: Admitted As Inpatient Admit Provider: Monty Acuña Clinical Impression: Bipolar 1 disorder, Suicidal ideation Condition: Stable Coding Level of Care Code ED [employer]er for Clive Navarrete
[2023-01-07 00:41] LABS: Basophils # 0.1 10^3/uL (0.0-0.1); Basophils % 0.7 %; Eosinophils % 0.5 %; Hematocrit 45.4 % (42.0-52.0); Hemoglobin 15.3 g/dL (11.7-16.6); Lymphocytes # 1.5 10^3/uL (0.8-4.8); Lymphocytes % 19.1 %; Mean Corpuscular HGB Conc 33.7 g/dL (30.0-36.0); Mean Corpuscular Hemoglobin 31.8 pg (28.0-34.0); Mean Corpuscular Volume 94.4 fl (80-94); Mean Platelet Volume 9.1 fL (7.4-10.4); Monocytes # 0.9 10^3/uL (0.2-0.9); Monocytes % 12.3 %; Neutrophils # 5.07 10^3/uL (1.8-7.7); Neutrophils % 66.7 %; Nucleated Red Blood Cells % 0 %; Platelet Count 307 10^3/cmm (130-400); Red Blood Count 4.81 10^6/uL (4.1-5.3); Red Cell Distribution Width 12.5 % (12.1-15.1); White Blood Count 7.6 10^3/uL (4.0-10.0)
[2023-01-07 00:58] LABS: Alanine Aminotransferase 26 U/L (0-41); Albumin Level 4.4 g/dL (3.5-5.2); Alkaline Phosphatase 81 U/L (40-130); Aspartate Amino Transferase 21 U/L (0-40); Blood Urea Nitrogen 7 mg/dL (6-20); Calcium 9.3 mg/dL (8.5-10.5); Carbon Dioxide 20 mmol/L (22-29); Chloride 103 mmol/L (98-107); Globulin 2.8 g/dL (1.3-4.6); Glomerular Filtration Rate 132.4 mL/min (90-130); Glucose 80 mg/dL (65-115); Osmolality Calculated 279 mOsm/kg (285-295); Salicylate 4.3 mg/dL (3-10); Sodium 136 mmol/L (136-145); Total Bilirubin 0.4 mg/dL (0.15-1.2); Total Protein 7.2 g/dL (6.6-8.7)
[2023-01-07 01:02] LABS: Acetaminophen < 5.0 ug/mL (10-30); Alcohol Level < 10 mg/dL (0-10)
[2023-01-07 01:03] LABS: Anion Gap 16.9 (5-19); Potassium 3.9 mmol/L (3.5-5.1)
--- NOTE | 2023-01-07 01:57 | PC.NURSE ---
96 Hour Patient Rights have been read to the patient & a copy of the same was given to him. fire control officer, Torsten, was present at bedside.
[2023-01-07 02:16] VITALS: BP 138/70; PULSE 69; RESP 15; O2SAT 100
[2023-01-07 02:38] VITALS: BP 141/87; PULSE 104; RESP 20; O2SAT 100
[2023-01-07 02:43] VITALS: BMI 30.1
[2023-01-07] MEDS: OLANZapine 5 mg ODT PO ×2 (05:51→20:44)
[2023-01-07] MEDS: nicotine 21 mg Patch 1 PATCH TRANSDERMA (05:59)
[2023-01-07 06:00] VITALS: BP 143/96; PULSE 105; RESP 20; TEMP 36.5
--- NOTE | 2023-01-07 06:22 | PC.NURSE ---
Patient woke up angry, labile, flight of ideas, threatening, manipulative, refuses assessment. Olanzapine 5mg ODT given, no change is behavior. Remains HI
[2023-01-07] MEDS: nicotine 2 mg Gum BUCCAL ×6 (08:13→22:43)
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
[2023-01-07] MEDS: haloperidol 5 mg Tablet PO (12:46)
--- NOTE | 2023-01-07 12:48 | PC.NURSE ---
Administered Haldol 5mg PO. Patient anxious, agitated and aggressive. Will continue to monitor.
[2023-01-07 13:59] VITALS: BP 143/85; PULSE 109; RESP 18; TEMP 36.5; O2SAT 98
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
--- NOTE | 2023-01-07 16:03 | PC.NURSE ---
Patient took a call from his mother, hung up on her, and immediately began yelling about how much he hated her and referred to her as a bitch several times. This RN instructed the patient to try to take deep breaths and walk slowly. Patient complied for a few moments, but then began yelling again. This RN asked if he had thought about possibly not talking to his mom for a few days to help alleviate some tension and anxiety to clear his head before he talked to her again. He appeared to be mad enough that he heard the question, but didn't process it as he replied, I fucking send her $3000. She's trying to ruin my relationship with my kids. Fuck her man. Fuck her. Patient then asked this RN to call his social science analyst from [facility], which I did, and he asked if he could possibly talk to her. She then came up to the unit almost immediately to talk with him. Patient immediately calmed down a bit upon seeing her.
[2023-01-07] MEDS: benzocaine 20% 7 gm 1 APPLIC MUCOUS MEM (18:48)
[2023-01-07] MEDS: nicotine 4 mg lozenge MUCOUS MEM (19:45)
[2023-01-07] MEDS: hyDROXYzine 25 mg Capsule 50 MG PO (20:44)
[2023-01-07] MEDS: trazodone 50 mg Tablet PO ×2 (20:44→23:14)
[2023-01-07 20:54] VITALS: BP 132/85; PULSE 97; RESP 18; TEMP 36.3; O2SAT 96
[2023-01-08] MEDS: nicotine 2 mg Gum BUCCAL ×7 (00:22→22:18)
[2023-01-08] MEDS: OLANZapine 5 mg ODT PO (03:15)
[2023-01-08] MEDS: haloperidol 5 mg Tablet PO ×2 (03:15→22:19)
[2023-01-08] MEDS: haloperidol inj 5 mg/mL INJ 1 mL IM (04:57)
[2023-01-08] MEDS: diphenhydrAMINE 50 mg/mL SDV 1mL IM (04:57)
[2023-01-08] MEDS: LORazepam 2 mg/mL INJ 1 mL IM (04:57)
--- NOTE | 2023-01-08 05:22 | PC.NURSE ---
Patient has been pacing throughout night, cussing at this RN multiple times calling me a ana, aurora roberts, cely . He backed up to room 151 & when asked what he was doing, he stated that he was going to try to go through the exit door. He continued to threaten, attempted to turn over a table in the dayroom, yelling, slamming doors. Security & Calenderer were notified & patient agreed to take a B-52 given in the left & right deltoids. Patient soon after took a shower & is currently laying in bed, no distress noted.
[2023-01-08 06:00] VITALS: BP 136/87; PULSE 86; RESP 20; TEMP 36.3; O2SAT 99
[2023-01-08] MEDS: paliperidone ER 6 mg Tablet PO (10:07)
--- NOTE | 2023-01-08 10:35 | PC.NURSE ---
pt continues to refuse to fill out paperwork. pt was informed that we will not be able to talk to anybody if he does not properly fill out his forms. pt states i dont care im done with the paperwork. pt then proceeded to yell ugh and throw an orange juice box. pt was informed that that is not appropriate and to not do that again. pt then proceeded to go to group and participate properly.
[2023-01-08 14:00] VITALS: BP 115/78; PULSE 85; RESP 20; TEMP 36.6; O2SAT 96
--- NOTE | 2023-01-08 17:48 | W.PM.NPUPNS ---
Subjective NPU Subjective: Patient presented today continuing to be pulled into the conflicts with his mom. 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 He reported that he gets the money which puts him in the red at the end of the month and they do not seem to appreciate his generosity. He was wondering about his length of stay and we discussed the plan to give him a oral Invega until his next injection is due and then increase the baseline injection monthly from 156mg IM to 234 mg. Mental Status Exam MSE Comments: This is an overweight versus obese white male in hospital scrubs with adequate grooming and eye contact. No abnormal movements except for psychomotor agitation. Cooperative with exam in mild distress. Speech was increased rate and volume. Mood described as fine, affect hyperkinetic. Thought process organized. Thought content: Patient denied suicidal or homicidal ideation, there were no delusions reported but some grandiose thinking and paranoia and possible persecutory delusions noted. He denied auditory visual hallucinations. Attention and concentration appeared intact and memory was somewhat reliable but none were formally tested. He is alert and oriented x3. Insight judgment and impulse control limited. Vitals/I&O/Wt Last Vital Signs Temp 97.7 F 01/08/23 22:00 Pulse 96 01/08/23 22:00 Resp 18 01/08/23 22:00 BP 125/80 01/08/23 22:00 Pulse Ox 95 01/08/23 22:00 O2 Del Method Room Air 01/08/23 22:00 Data NPU 01/07/23 00:35 01/07/23 00:35 A&P Assessment and plan (1) Acute psychosis: (2) Bipolar 1 disorder: Plan The patient is a 32-year-old male with a history of bipolar disorder who was admitted last month with a history of worsening mood, increased irritability and agitation and paranoia and switched to the Invega Sustenna injectable returns with apparent manic symptoms on the current Invega dose. 1. Continue current medication. Added 6 mg of Invega in the morning and plan to increase his Invega Sustenna 156 mg IM to Invega Sustenna 234 mg IM moving forward 2 Continue every 15 minute checks for safety. 3. Encourage individual, group and milieu therapies. 4. Encourage sober living treatment after discharge at the highest level of care to which he is willing to commit Involuntary Hold Information 96 Hour Hold: 96 Hour Involuntary Admission: Yes 96 Hour Hold Ending Date: 01/11/23 96 Hour Hold Ending Time: 00:01 Attestations NPU Medical Necessity Statement*: Inpatient hospitalization is medically necessary and deemed to be the clinically appropriate decision at this time. We will monitor/initiate medications and make changes as indicated. Likely length of stay of 2-4 days. Coding Level of Care Code Acute Code for Chg Fwd Diagnoses Acute psychosis F23 Bipolar 1 disorder F31.9
[2023-01-08 22:00] VITALS: BP 125/80; PULSE 96; RESP 18; TEMP 36.5; O2SAT 95
[2023-01-08] MEDS: trazodone 50 mg Tablet PO (22:19)
[2023-01-08] MEDS: hyDROXYzine 25 mg Capsule 50 MG PO (22:19)
[2023-01-09] MEDS: ondansetron 4 MG Tablet PO (04:37)
[2023-01-09] MEDS: nicotine 2 mg Gum BUCCAL ×8 (04:49→21:19)
[2023-01-09 06:00] VITALS: BP 118/85; PULSE 85; RESP 17; O2SAT 98
[2023-01-09 10:09] VITALS: BP 132/87; PULSE 87; RESP 18; O2SAT 98
[2023-01-09] MEDS: paliperidone ER 6 mg Tablet PO (10:13)
[2023-01-09] MEDS: OLANZapine 5 mg ODT PO (13:54)
[2023-01-09 14:00] VITALS: BP 136/86; PULSE 83; RESP 20; TEMP 36.5; O2SAT 96
[2023-01-09] MEDS: hyDROXYzine 25 mg Capsule 50 MG PO ×2 (15:06→20:03)
--- NOTE | 2023-01-09 17:21 | W.PM.NPUPNS ---
Subjective NPU Subjective: Patient presented today continuing to endorse that he feels like he is doing alright. He reports that some of the economic stressors may have been alleviated according to his mom. He reports a desire to go to his place and just relax. We discussed that tomorrow is the decision today for discharge versus a 21-day hold. He reports he is agreeable to the increase in the IM Invega and also willing to continue the oral Invega until it is time for the injection. Otherwise he denies any new or pressing issues. Mental Status Exam MSE Comments: This is an overweight versus obese white male in hospital scrubs with adequate grooming and eye contact. No abnormal movements except for resolving psychomotor agitation. Cooperative with exam in mild distress. Speech was increased rate and volume. Mood described as okay I think, affect less energetic. Thought process organized. Thought content: Patient denied suicidal or homicidal ideation, there were no delusions reported but some grandiose thinking and paranoia and possible persecutory delusions noted. He denied auditory visual hallucinations. Attention and concentration appeared intact and memory was somewhat reliable but none were formally tested. He is alert and oriented x3. Insight judgment and impulse control limited. Vitals/I&O/Wt Last Vital Signs Temp 97.7 F 01/09/23 14:00 Pulse 83 01/09/23 14:00 Resp 20 H 01/09/23 14:00 BP 136/86 01/09/23 14:00 Pulse Ox 96 01/09/23 14:00 O2 Del Method Room Air 01/09/23 10:09 Data NPU 01/07/23 00:35 01/07/23 00:35 A&P Assessment and plan (1) Acute psychosis: (2) Bipolar 1 disorder: Plan The patient is a 32-year-old male with a history of bipolar disorder who was admitted last month with a history of worsening mood, increased irritability and agitation and paranoia and switched to the Invega Sustenna injectable returns with apparent manic symptoms on the current Invega dose. 1. Continue current medication. Added 6 mg of Invega in the morning and plan to increase his Invega Sustenna 156 mg IM to Invega Sustenna 234 mg IM moving forward 2 Continue every 15 minute checks for safety. 3. Encourage individual, group and milieu therapies. 4. Encourage sober living treatment after discharge at the highest level of care to which he is willing to commit. 5. We will consider discharge tomorrow. Involuntary Hold Information 96 Hour Hold: 96 Hour Involuntary Admission: Yes 96 Hour Hold Ending Date: 01/11/23 96 Hour Hold Ending Time: 00:01 Attestations NPU Medical Necessity Statement*: Inpatient hospitalization is medically necessary and deemed to be the clinically appropriate decision at this time. We will monitor/initiate medications and make changes as indicated. Likely length of stay of 1-3 days. Coding Level of Care Code Acute Code for Chg Fwd Diagnoses Acute psychosis F23 Bipolar 1 disorder F31.9
[2023-01-09] MEDS: trazodone 50 mg Tablet PO (20:03)
[2023-01-09 22:00] VITALS: BP 127/82; PULSE 83; RESP 22; O2SAT 98
[2023-01-10] MEDS: nicotine 2 mg Gum BUCCAL ×10 (00:16→20:17)
[2023-01-10] MEDS: OLANZapine 5 mg ODT PO ×3 (01:48→16:55)
[2023-01-10] MEDS: hyDROXYzine 25 mg Capsule 50 MG PO ×2 (02:25→15:12)
--- NOTE | 2023-01-10 02:27 | PC.NURSE ---
PRN vistaril given for anxiety as ordered per pt request.
[2023-01-10] MEDS: ondansetron 4 MG Tablet PO (04:00)
[2023-01-10] MEDS: benztropine 1 mg Tablet PO (05:40)
[2023-01-10] MEDS: haloperidol 5 mg Tablet PO (05:40)
[2023-01-10 06:00] VITALS: BP 125/81; PULSE 99; RESP 18; TEMP 37.2; O2SAT 97
[2023-01-10] MEDS: paliperidone ER 6 mg Tablet PO (08:25)
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
[2023-01-10 14:00] VITALS: BP 119/81; PULSE 94; RESP 18; TEMP 36.8; O2SAT 96
[2023-01-10] MEDS: pantoprazole DR 40 mg Tablet PO (14:21)
[2023-01-10] MEDS: acetaminophen 325 mg Tablet 650 MG PO (16:55)
--- NOTE | 2023-01-10 16:56 | W.PM.NPUPNS ---
Subjective NPU Subjective: Patient presented today reporting that he understands that we needed to put the 21-day hold paperwork in. He reported that last night when he was running up and down the hallways and keeping people up that he was just trying to work out some energy so he could sleep. We discussed how critical sleep is in the wellness of a person with bipolar disorder and that we would need to make sure his sleep pattern was firm prior to discharge which would likely also impact his osmin. He understood and was agreeable to the plan. Mental Status Exam MSE Comments: This is an overweight versus obese white male in hospital scrubs with adequate grooming and eye contact. No abnormal movements except for resolving psychomotor agitation. Cooperative with exam in mild distress. Speech was increased rate and volume. Mood described as okay I think, affect less energetic. Thought process organized. Thought content: Patient denied suicidal or homicidal ideation, there were no delusions reported but some grandiose thinking and paranoia and possible persecutory delusions noted. He denied auditory visual hallucinations. Attention and concentration appeared intact and memory was somewhat reliable but none were formally tested. He is alert and oriented x3. Insight judgment and impulse control limited. Vitals/I&O/Wt Last Vital Signs Temp 98.3 F 01/10/23 14:00 Pulse 94 01/10/23 14:00 Resp 18 01/10/23 14:00 BP 119/81 01/10/23 14:00 Pulse Ox 96 01/10/23 14:00 O2 Del Method Room Air 01/10/23 14:00 Data NPU 01/07/23 00:35 01/07/23 00:35 A&P Assessment and plan (1) Acute psychosis: (2) Bipolar 1 disorder: Plan The patient is a 32-year-old male with a history of bipolar disorder who was admitted last month with a history of worsening mood, increased irritability and agitation and paranoia and switched to the Invega Sustenna injectable returns with apparent manic symptoms on the current Invega dose. 1. Continue current medication. Added 6 mg of Invega in the morning and plan to increase his Invega Sustenna 156 mg IM to Invega Sustenna 234 mg IM moving forward. Start Klonopin 1 mg p.o. nightly to assist with sleep. 2 Continue every 15 minute checks for safety. 3. Encourage individual, group and milieu therapies. 4. Encourage sober living treatment after discharge at the highest level of care to which he is willing to commit. 5. We submitted 21-day hold paperwork but will continue to evaluate daily. Involuntary Hold Information 96 Hour Hold: 96 Hour Involuntary Admission: Yes 96 Hour Hold Ending Date: 01/11/23 96 Hour Hold Ending Time: 00:01 Attestations NPU Medical Necessity Statement*: Inpatient hospitalization is medically necessary and deemed to be the clinically appropriate decision at this time. We will monitor/initiate medications and make changes as indicated. Likely length of stay of 4-6 days. Coding Level of Care Code Acute Code for Chg Fwd Diagnoses Acute psychosis F23 Bipolar 1 disorder F31.9
[2023-01-10 20:06] VITALS: BP 124/79; PULSE 89; RESP 18; TEMP 36.4; O2SAT 96
[2023-01-10] MEDS: trazodone 50 mg Tablet PO (20:45)
[2023-01-10] MEDS: CLONazepam 1 mg Tablet PO (20:45)
[2023-01-11] MEDS: nicotine 2 mg Gum BUCCAL ×8 (00:18→21:42)
[2023-01-11] MEDS: CLONazepam 1 mg Tablet PO ×3 (00:27→21:42)
[2023-01-11] MEDS: simethicone 80 mg Chew PO ×2 (00:59→22:15)
[2023-01-11] MEDS: hyDROXYzine 25 mg Capsule 50 MG PO ×3 (05:16→18:56)
[2023-01-11 06:00] VITALS: BP 112/81; PULSE 107; RESP 16; TEMP 36.4; O2SAT 92
[2023-01-11] MEDS: acetaminophen 325 mg Tablet 650 MG PO ×3 (06:19→17:38)
[2023-01-11] MEDS: paliperidone ER 6 mg Tablet PO (08:44)
[2023-01-11] MEDS: OLANZapine 5 mg ODT PO ×3 (08:44→22:12)
[2023-01-11] MEDS: nicotine 4 mg lozenge MUCOUS MEM (09:56)
[2023-01-11 14:00] VITALS: BP 124/88; PULSE 106; RESP 18; TEMP 36.5; O2SAT 96
[2023-01-11] MEDS: benzocaine 20% 7 gm 1 APPLIC MUCOUS MEM (18:01)
--- NOTE | 2023-01-11 19:17 | P.NPUPN_ITS ---
Subjective NPU Subjective: Patient presented today reporting that things are going okay. He reported that taking the Klonopin was very helpful in him getting better sleep which was also endorsed by other staff. He continues to be quite mercurial in his thoughts about what to do next and we talked about the importance of him being clear with the plan that he will follow through on. We talked about him getting the i ncrease in Invega Sustenna at discharge and us having a goal of him leaving by next weekend. Mental Status Exam MSE Comments: This is an overweight versus obese white male in hospital scrubs with adequate grooming and eye contact. No abnormal movements except for resolving psychomotor agitation. Cooperative with exam in mild distress. Speech was more normal rate and volume. Mood described as okay I think, affect less energetic. Thought process organized. Thought content: Patient denied suicidal or homicidal ideation, there were no delusions reported but some grandiose thinking and paranoia and possible persecutory delusions noted. He denied auditory visual hallucinations. Attention and concentration appeared intact and memory was somewhat reliable but none were formally tested. He is alert and oriented x3. Insight, judgment and impulse control limited. Vitals/I&O/Wt Last Vital Signs Temp 97.7 F 01/11/23 14:00 Pulse 106 H 01/11/23 14:00 Resp 18 01/11/23 14:00 BP 124/88 01/11/23 14:00 Pulse Ox 96 01/11/23 14:00 O2 Del Method Room Air 01/11/23 06:00 Data NPU 01/07/23 00:35 01/07/23 00:35 A&P Assessment and plan (1) Acute psychosis: (2) Bipolar 1 disorder: Plan The patient is a 32-year-old male with a history of bipolar disorder who was admitted last month with a history of worsening mood, increased irritability and agitation and paranoia and switched to the Invega Sustenna injectable returns with apparent manic symptoms on the current Invega dose. 1. Continue current medication. Added 6 mg of Invega in the morning and plan to increase his Invega Sustenna 156 mg IM to Invega Sustenna 234 mg IM moving forward. Start Klonopin 1 mg p.o. nightly to assist with sleep. 2 Continue every 15 minute checks for safety. 3. Encourage individual, group and milieu therapies. 4. Encourage sober living treatment after discharge at the highest level of care to which he is willing to commit. 5. We submitted 21-day hold paperwork but will continue to evaluate daily. Involuntary Hold Information 96 Hour Hold: 96 Hour Involuntary Admission: Yes 96 Hour Hold Ending Date: 01/11/23 96 Hour Hold Ending Time: 00:01 Attestations NPU Medical Necessity Statement*: Inpatient hospitalization is medically necessary and deemed to be the clinically appropriate decision at this time. We will monitor/initiate medications and make changes as indicated. Likely length of stay of 4-6 days. Coding Level of Care Code Acute Code for Chg Fwd Diagnoses Acute psychosis F23 Bipolar 1 disorder F31.9
[2023-01-11] MEDS: trazodone 50 mg Tablet PO (20:00)
[2023-01-11 21:59] VITALS: BP 132/81; PULSE 101; RESP 18; TEMP 36.5; O2SAT 96
[2023-01-12] MEDS: nicotine 2 mg Gum BUCCAL ×9 (00:20→20:18)
[2023-01-12] MEDS: trazodone 50 mg Tablet PO ×2 (01:04→20:43)
[2023-01-12] MEDS: hyDROXYzine 25 mg Capsule 50 MG PO (01:04)
[2023-01-12] MEDS: haloperidol 5 mg Tablet PO ×4 (03:35→20:43)
[2023-01-12] MEDS: benztropine 1 mg Tablet PO (03:36)
[2023-01-12] MEDS: OLANZapine 5 mg ODT PO ×4 (04:45→20:43)
[2023-01-12 06:00] VITALS: BP 123/83; PULSE 97; RESP 16; TEMP 36.4; O2SAT 99
[2023-01-12] MEDS: paliperidone ER 6 mg Tablet PO (08:12)
[2023-01-12] MEDS: benzocaine 20% 7 gm 1 APPLIC MUCOUS MEM ×2 (11:14→15:50)
[2023-01-12] MEDS: ibuprofen 600 mg Tablet PO (12:06)
[2023-01-12] MEDS: LORazepam 2 mg Tablet PO (12:10)
[2023-01-12] MEDS: diphenhydrAMINE 50 mg Capsule PO (12:10)
[2023-01-12 14:00] VITALS: BP 140/82; PULSE 84; RESP 20; TEMP 36.6; O2SAT 98
--- NOTE | 2023-01-12 19:08 | W.PM.NPUPNS ---
Subjective NPU Subjective: Patient presented today reporting that he was doing okay. He was having some significant irritability and frustration on multiple issues. Including some other patients as well as interpretation of him not getting enough sleep. He reports he went to bed fairly early last night and got up at 430 such that he would have had about 7 hours of sleep which he reports is really good for him. He reports that his desire is to get up early because he likes to take jobs that start currently. We continued to discuss him maintaining the medication and hopefulness that we could get to the point that he is ready for discharge in the next week. He acknowledges that he is on the 21-day hold. Mental Status Exam MSE Comments: This is an overweight versus obese white male in hospital scrubs with adequate grooming and eye contact. No abnormal movements except for resolving psychomotor agitation. Cooperative with exam in mild distress. Speech was more normal rate and volume. Mood described as frustrated I would like to go home, affect less energetic. Thought process organized. Thought content: Patient denied suicidal or homicidal ideation, there were no delusions reported but some grandiose thinking and paranoia and possible persecutory delusions noted. He denied auditory visual hallucinations. Attention and concentration appeared intact and memory was somewhat reliable but none were formally tested. He is alert and oriented x3. Insight, judgment and impulse control limited. Vitals/I&O/Wt Last Vital Signs Temp 98 F 01/12/23 14:00 Pulse 84 01/12/23 14:00 Resp 20 H 01/12/23 14:00 BP 140/82 01/12/23 14:00 Pulse Ox 98 01/12/23 14:00 O2 Del Method Room Air 01/12/23 06:00 Data NPU 01/07/23 00:35 01/07/23 00:35 A&P Assessment and plan (1) Acute psychosis: (2) Bipolar 1 disorder: Plan The patient is a 32-year-old male with a history of bipolar disorder who was admitted last month with a history of worsening mood, increased irritability and agitation and paranoia and switched to the Invega Sustenna injectable returns with apparent manic symptoms on the current Invega dose. 1. Continue current medication. Added 6 mg of Invega in the morning and plan to increase his Invega Sustenna 156 mg IM to Invega Sustenna 234 mg IM moving forward. Start Klonopin 1 mg p.o. nightly to assist with sleep. 2 Continue every 15 minute checks for safety. 3. Encourage individual, group and milieu therapies. 4. Encourage sober living treatment after discharge at the highest level of care to which he is willing to commit. 5. We submitted 21-day hold paperwork but will continue to evaluate daily. Involuntary Hold Information 96 Hour Hold: 96 Hour Involuntary Admission: Yes 96 Hour Hold Ending Date: 01/11/23 96 Hour Hold Ending Time: 00:01 Attestations NPU Medical Necessity Statement*: Inpatient hospitalization is medically necessary and deemed to be the clinically appropriate decision at this time. We will monitor/initiate medications and make changes as indicated. Likely length of stay of 4-6 days. Coding Level of Care Code Acute Code for g Fwd Diagnoses Acute psychosis F23 Bipolar 1 disorder F31.9
[2023-01-12] MEDS: CLONazepam 1 mg Tablet 2 MG PO (20:43)
[2023-01-12 22:00] VITALS: RESP 18
--- NOTE | 2023-01-12 22:23 | PC.NURSE ---
Since start of this shift, the patient has been pacing the [place], yelling, cussing & making inappropriate sexual remarks to patients. 2 patients had to be moved to the [facility] due to sexual comments & patting another patient on the butt. He was also yelling comments towards a male peer & appeared to be trying to start something, staff was able to redirect him. Security & Park Maintainer were notified.
--- NOTE | 2023-01-13 02:09 | PC.NURSE ---
Addendum entered by Duane Curtis RN 01/13/23 02:40: Patient again walked out of his room & requested gum, which was given to him. He then mumbled something else & when asked what, he said My mouth is dry, get me some lemonade . This RN got immediately up to that & he then said hurry the fuck up . This RN stopped & said he was not going to speak to anyone like that & stated I would be happy to get him a drink, but I would not be talked to like that. He then said Fuck it & stumbled to the dayroom. He is now walking from the dayroom back to the hallway, to the phone & mumbling to himself with his eyes half open. Addendum entered by Duane Curtis RN 01/13/23 02:16: Patient again up & walking [place] with no shirt & eyes half closed. Patient was redirected back to his bed, he mumbled unrecognized words as he walked to his room. Patient is now laying in his bed. Original Note: At approximately 0115, patient walked out of his room without a shirt on, eyes closed & mumbling, appearing as though he was sleepwalking. Patient advised multiple times to return to bed, which he did at approximately 0130. Patient is sleeping soundly now.
[2023-01-13] MEDS: nicotine 2 mg Gum BUCCAL ×9 (02:37→22:18)
[2023-01-13 06:00] VITALS: BP 129/83; PULSE 118; RESP 19; O2SAT 98; BMI 30.1
[2023-01-13] MEDS: paliperidone ER 6 mg Tablet PO (08:25)
[2023-01-13 12:35] VITALS: BP 132/84; PULSE 82; RESP 18; TEMP 36.8; O2SAT 98
--- NOTE | 2023-01-13 13:24 | P.NPUPN_ITS ---
Subjective NPU Subjective: Patient presented today reporting that he was doing okay. He was still having irritability and frustration on multiple issues. He reports he went to bed fairly early again last night. We continued to discuss him maintaining the medication and hopefulness that we could get to the point that he is ready for discharge him this week. Mental Status Exam MSE Comments: This is an overweight versus obese white male in hospital scrubs with adequate grooming and eye contact. No abnormal movements except for resolving psychomotor agitation. Cooperative with exam in mild distress. Speech was more normal rate and volume. Mood described as frustrated I would like to go home, affect less energetic. Thought process organized. Thought content: Patient denied suicidal or homicidal ideation, there were no delusions reported but some grandiose thinking and paranoia and possible persecutory delusions noted. He denied auditory visual hallucinations. Attention and concentration appeared in tact and memory was somewhat reliable but none were formally tested. He is alert and oriented x3. Insight, judgment and impulse control limited. Vitals/I&O/Wt Last Vital Signs Temp 98.3 F 01/13/23 12:35 Pulse 82 01/13/23 12:35 Resp 18 01/13/23 12:35 BP 132/84 01/13/23 12:35 Pulse Ox 98 01/13/23 12:35 O2 Del Method Room Air 01/13/23 12:35 Weight last 48 hrs Weight 89.811 kg Data NPU 01/07/23 00:35 01/07/23 00:35 A&P Assessment and plan (1) Acute psychosis: (2) Bipolar 1 disorder: Plan The patient is a 32-year-old male with a history of bipolar disorder who was admitted last month with a history of worsening mood, increased irritability and agitation and paranoia and switched to the Invega Sustenna injectable returns with apparent manic symptoms on the current Invega dose. 1. Continue current medication. Added 6 mg of Invega in the morning and plan to increase his Invega Sustenna 156 mg IM to Invega Sustenna 234 mg IM moving forward. Started Klonopin 1 mg p.o. nightly to assist with sleep. 2 Continue every 15 minute checks for safety. 3. Encourage individual, group and milieu therapies. 4. Encourage sober living treatment after discharge at the highest level of care to which he is willing to commit. 5. We submitted 21-day hold paperwork but will continue to evaluate daily. Involuntary Hold Information 96 Hour Hold: 96 Hour Involuntary Admission: Yes 96 Hour Hold Ending Date: 01/11/23 96 Hour Hold Ending Time: 00:01 Attestations NPU Medical Necessity Statement*: Inpatient hospitalization is medically necessary and deemed to be the clinically appropriate decision at this time. We will monitor/initiate medications and make changes as indicated. Likely length of stay of 3-5 days. Coding Level of Care Code Acute Code for Chg Fwd Diagnoses Acute psychosis F23 Bipolar 1 disorder F31.9
[2023-01-13] MEDS: OLANZapine 5 mg ODT PO ×2 (15:05→20:33)
[2023-01-13] MEDS: benzocaine 20% 7 gm 1 APPLIC MUCOUS MEM (15:56)
[2023-01-13] MEDS: acetaminophen 325 mg Tablet 650 MG PO (17:12)
[2023-01-13] MEDS: hyDROXYzine 25 mg Capsule 50 MG PO (17:41)
--- NOTE | 2023-01-13 20:35 | PC.NURSE ---
pt requested that pill that goes under my tongue. Zyprexa 5mg SL given.
[2023-01-13] MEDS: trazodone 50 mg Tablet PO (21:13)
[2023-01-13] MEDS: haloperidol 5 mg Tablet PO (21:14)
--- NOTE | 2023-01-13 21:30 | PC.NURSE ---
pt requested sleeping meds, trazodone 50mg po and haldol 5mg po given.
[2023-01-13 22:00] VITALS: RESP 20
[2023-01-13] MEDS: diphenhydrAMINE 50 mg Capsule PO (22:26)
[2023-01-13] MEDS: LORazepam 2 mg Tablet PO (22:27)
--- NOTE | 2023-01-13 22:30 | PC.NURSE ---
pt given Benadryl 50mg and Ativan 2mg both po per pt request, can i get that combination i was given before to help me sleep? when asked what meds he was talking about, pt stated Ativan and those others
[2023-01-14] MEDS: OLANZapine 5 mg ODT PO ×4 (02:37→20:43)
--- NOTE | 2023-01-14 02:40 | PC.NURSE ---
pt requested med that goes under my tongue. zyprexa 5mg SL given.
--- NOTE | 2023-01-14 04:00 | PC.NURSE ---
THIS PT HAS HAD A VERY GOOD NIGHT TONIGHT. ONE OF OUR ADMITS WAS GETTING VERY RUDE AND IRATE AT STAFF AND THIS PT TRIED TO CALM THAT PT AND EXPLAIN WHY THE RULES ARE WHAT THEY ARE. THIS PT DEFENDED STAFF VERY WELL. STAFF VOICED APPRECIATION AND TOLD PT HOW PROUD STAFF IS OF HIM THIS NIGHT.
[2023-01-14] MEDS: nicotine 2 mg Gum BUCCAL ×9 (04:14→21:24)
[2023-01-14 06:00] VITALS: BP 136/78; PULSE 95; RESP 18; TEMP 37; O2SAT 98
[2023-01-14] MEDS: acetaminophen 325 mg Tablet 650 MG PO (06:47)
[2023-01-14] MEDS: paliperidone ER 6 mg Tablet PO (07:57)
[2023-01-14] MEDS: hyDROXYzine 25 mg Capsule 50 MG PO ×3 (09:30→19:24)
--- NOTE | 2023-01-14 09:31 | PC.NURSE ---
prn Vistaril 50 mg given po per pt c/o further anxiety
[2023-01-14 13:51] VITALS: BP 144/95; PULSE 89; RESP 20; TEMP 36.3; O2SAT 99
--- NOTE | 2023-01-14 17:04 | W.PM.NPUPNS ---
Subjective NPU Subjective: Patient presented today continuing to have irritability about not being discharged. He did not attend his 21-day hold hearing which the 21-day hold was granted but then he had some strange belief that he was still going to be discharged. He basically talks about being able to smoke a cigarette and not being trapped in a place but otherwise reports that the irritability and impatience that we see is part of his baseline behavior. We continued to discuss the goal of having him discharged with the higher Invega Sustenna injection by the weekend. Mental Status Exam MSE Comments: This is an overweight versus obese white male in hospital scrubs with adequate grooming and eye contact. No abnormal movements except for resolving psychomotor agitation. Cooperative with exam in mild to moderate distress. Speech was more normal rate and volume. Mood described as frustrated I would like to go home, affect less energetic. Thought process organized. Thought content: Patient denied suicidal or homicidal ideation, there were no delusions reported but some grandiose thinking and paranoia and possible persecutory delusions noted. He denied auditory visual hallucinations. Attention and concentration appeared intact and memory was somewhat reliable but none were formally tested. He is alert and oriented x3. Insight, judgment and impulse control limited. Vitals/I&O/Wt Last Vital Signs Temp 97.4 F L 01/14/23 13:51 Pulse 89 01/14/23 13:51 Resp 20 H 01/14/23 13:51 BP 144/95 01/14/23 13:51 Pulse Ox 99 01/14/23 13:51 O2 Del Method Room Air 01/14/23 06:00 Weight last 48 hrs Weight 89.811 kg Data NPU 01/07/23 00:35 01/07/23 00:35 A&P Assessment and plan (1) Acute psychosis: (2) Bipolar 1 disorder: Plan The patient is a 32-year-old male with a history of bipolar disorder who was admitted last month with a history of worsening mood, increased irritability and agitation and paranoia and switched to the Invega Sustenna injectable returns with apparent manic symptoms on the current Invega dose. 1. Continue current medication. Added 6 mg of Invega in the morning and plan to increase his Invega Sustenna 156 mg IM to Invega Sustenna 234 mg IM moving forward. Started Klonopin 1 mg p.o. nightly to assist with sleep. 2 Continue every 15 minute checks for safety. 3. Encourage individual, group and milieu therapies. 4. Encourage sober living treatment after discharge at the highest level of care to which he is willing to commit. 5. 21-day hold hearing today and 21-day hold granted. Involuntary Hold Information 96 Hour Hold: 96 Hour Involuntary Admission: Yes 96 Hour Hold Ending Date: 01/11/23 96 Hour Hold Ending Time: 00:01 Attestations NPU Medical Necessity Statement*: Inpatient hospitalization is medically necessary and deemed to be the clinically appropriate decision at this time. We will monitor/initiate medications and make changes as indicated. Likely length of stay of 3-5 days. Coding Level of Care Code Acute Code for g Fwd Diagnoses Acute psychosis F23 Bipolar 1 disorder F31.9
[2023-01-14] MEDS: trazodone 50 mg Tablet PO (19:24)
[2023-01-14] MEDS: diphenhydrAMINE 50 mg Capsule PO (19:45)
[2023-01-14] MEDS: LORazepam 2 mg Tablet PO (19:45)
[2023-01-14] MEDS: haloperidol 5 mg Tablet PO (19:45)
[2023-01-14] MEDS: CLONazepam 1 mg Tablet 2 MG PO (20:06)
[2023-01-14 21:28] VITALS: BP 131/85; PULSE 127; RESP 18; TEMP 36.6; O2SAT 98
[2023-01-15] MEDS: nicotine 2 mg Gum BUCCAL ×10 (02:09→23:28)
[2023-01-15] MEDS: LORazepam 2 mg Tablet PO (02:38)
[2023-01-15] MEDS: diphenhydrAMINE 50 mg Capsule PO (02:38)
[2023-01-15] MEDS: haloperidol 5 mg Tablet PO (02:38)
--- NOTE | 2023-01-15 02:41 | PC.NURSE ---
PT UP PACING IN HALLWAY, YELLING OBSCENITIES AT STAFF DUE TO NOT BEING ABLE TO BE DISCHARGED. PT THROWING ORANGE PEELS IN HALLWAY AND BANGING DOORS SHUT. PO ATIVAN 2MG, PO BENADRYL 50MG, AND PO HALDOL 2MG GIVEN.
[2023-01-15] MEDS: OLANZapine 5 mg ODT PO ×3 (03:04→15:25)
[2023-01-15 05:48] VITALS: BP 124/84; PULSE 114; RESP 16; TEMP 37; O2SAT 96
[2023-01-15] MEDS: hyDROXYzine 25 mg Capsule 50 MG PO ×2 (06:04→18:48)
[2023-01-15] MEDS: paliperidone ER 6 mg Tablet PO (08:43)
[2023-01-15] MEDS: ibuprofen 600 mg Tablet PO ×2 (09:51→18:49)
[2023-01-15 14:00] VITALS: BP 117/74; PULSE 124; RESP 20; TEMP 36.3; O2SAT 97
--- NOTE | 2023-01-15 15:33 | W.PM.NPUPNS ---
Subjective NPU Subjective: Patient presented today reporting that things are going well. We discussed some of his erratic behavior and is trying to identify a date for discharge based on his behavior. He however has felt like it has been whimsical. We discussed the specific date of Saturday in an attempt to give him clarity in the discharge plan. We discussed the fact that he will determine whether Saturday will appear acceptable as a safe plan. Mental Status Exam MSE Comments: This is an overweight versus obese white male in hospital scrubs with adequate grooming and eye contact. No abnormal movements except for resolving psychomotor agitation. Cooperative with exam in mild distress. Speech was more normal rate and volume. Mood described as better I am going to show I am ready for Saturday, affect less energetic. Thought process organized. Thought content: Patient denied suicidal or homicidal ideation, there were no delusions reported but some grandiose thinking and paranoia and possible persecutory delusions noted. He denied auditory visual hallucinations. Attention and concentration appeared intact and memory was somewhat reliable but none were formally tested. He is alert and oriented x3. Insight, judgment and impulse control limited. Vitals/I&O/Wt Last Vital Signs Temp 97.7 F 01/15/23 20:25 Pulse 137 H 01/15/23 20:25 Resp 18 01/15/23 20:25 BP 136/85 01/15/23 20:25 Pulse Ox 97 01/15/23 20:25 O2 Del Method Room Air 01/15/23 20:25 Data NPU 01/07/23 00:35 01/07/23 00:35 A&P Assessment and plan (1) Acute psychosis: (2) Bipolar 1 disorder: Plan The patient is a 32-year-old male with a history of bipolar disorder who was admitted last month with a history of worsening mood, increased irritability and agitation and paranoia and switched to the Invega Sustenna injectable returns with apparent manic symptoms on the current Invega dose. 1. Continue current medication. Added 6 mg of Invega in the morning and plan to increase his Invega Sustenna 156 mg IM to Invega Sustenna 234 mg IM moving forward. Started Klonopin 1 mg p.o. nightly to assist with sleep. 2 Continue every 15 minute checks for safety. 3. Encourage individual, group and milieu therapies. 4. Encourage sober living treatment after discharge at the highest level of care to which he is willing to commit. 5. 21-day hold granted 01/14/2023. We discussed the possibility of discharge on Saturday as patient seems to need some sense of certainty in the target date of discharge. Involuntary Hold Information 96 Hour Hold: 96 Hour Involuntary Admission: Yes 96 Hour Hold Ending Date: 01/11/23 96 Hour Hold Ending Time: 00:01 Attestations NPU Medical Necessity Statement*: Inpatient hospitalization is medically necessary and deemed to be the clinically appropriate decision at this time. We will monitor/initiate medications and make changes as indicated. Likely length of stay of 2-4 days. Coding Level of Care Code Acute Code for Chg Fwd Diagnoses Acute psychosis F23 Bipolar 1 disorder F31.9
[2023-01-15] MEDS: benzocaine 20% 7 gm 1 APPLIC MUCOUS MEM (17:14)
[2023-01-15 20:25] VITALS: BP 136/85; PULSE 137; RESP 18; TEMP 36.5; O2SAT 97
[2023-01-15] MEDS: CLONazepam 1 mg Tablet 2 MG PO (20:39)
[2023-01-16] MEDS: nicotine 2 mg Gum BUCCAL ×11 (01:40→22:13)
[2023-01-16] MEDS: OLANZapine 5 mg ODT PO ×5 (01:43→20:23)
[2023-01-16] MEDS: nicotine 4 mg lozenge MUCOUS MEM (02:23)
[2023-01-16] MEDS: acetaminophen 325 mg Tablet 650 MG PO ×3 (02:24→16:45)
[2023-01-16] MEDS: benzocaine 20% 7 gm 1 APPLIC MUCOUS MEM ×4 (02:25→16:43)
[2023-01-16 06:00] VITALS: BP 111/84; PULSE 96; RESP 16; TEMP 36.6; O2SAT 99
[2023-01-16] MEDS: paliperidone ER 6 mg Tablet PO (07:52)
--- NOTE | 2023-01-16 12:27 | PC.NURSE ---
Patient reporting anxiety 04/25. Cause is because he is here. Encouraged patient to watch TV or walk the halls, both of which were unsuccessful at alleviating anxiety. Administered 5mg Zyprexa to patient. Will continue to monitor patient.
--- NOTE | 2023-01-16 13:33 | P.NPUPN_ITS ---
Subjective NPU Subjective: Patient presented today reporting that he is doing fine. It seems that giving him a clear discharge date as relieved his stress and allow him to behave more appropriately. We continued to discuss the plan for his discharge on Saturday and he was focused on the arrangements. We agreed would make sure that we gave him to increase to Invega Sustenna 234 mg IM prescription and injection if nir ropriate for discharge. Mental Status Exam MSE Comments: This is an overweight versus obese white male in hospital scrubs with adequate grooming and eye contact. No abnormal movements except for resolving psychomotor agitation. Cooperative with exam in no acute distress. Speech was more normal rate and volume. Mood described as better, affect less energetic. Thought process organized. Thought content: Patient denied suicidal or homicidal ideation, there were no delusions reported but some grandiose thinking and paranoia and possible persecutory delusions noted. He denied auditory visual hallucinations. Attention and concentration appeared intact and memory was somewhat reliable but none were formally tested. He is alert and oriented x3. Insight, judgment and impulse control limited. Vitals/I&O/Wt Last Vital Signs Temp 97.8 F 01/16/23 06:00 Pulse 96 01/16/23 06:00 Resp 16 01/16/23 06:00 BP 111/84 01/16/23 06:00 Pulse Ox 99 01/16/23 06:00 O2 Del Method Room Air 01/16/23 06:00 Data NPU 01/07/23 00:35 01/07/23 00:35 A&P Assessment and plan (1) Acute psychosis: (2) Bipolar 1 disorder: Plan The patient is a 32-year-old male with a history of bipolar disorder who was admitted last month with a history of worsening mood, increased irritability and agitation and paranoia and switched to the Invega Sustenna injectable returns with apparent manic symptoms on the current Invega dose. 1. Continue current medication. Added 6 mg of Invega in the morning and plan to increase his Invega Sustenna 156 mg IM to Invega Sustenna 234 mg IM moving forward. Started Klonopin 1 mg p.o. nightly to assist with sleep. 2 Continue every 15 minute checks for safety. 3. Encourage individual, group and milieu therapies. 4. Encourage sober living treatment after discharge at the highest level of care to which he is willing to commit. 5. 21-day hold granted 01/14/2023. We discussed discharge on Saturday as patient seems to need some sense of certainty in the target date of discharge is on his behavior was appropriate. Involuntary Hold Information 96 Hour Hold: 96 Hour Involuntary Admission: Yes 96 Hour Hold Ending Date: 01/11/23 96 Hour Hold Ending Time: 00:01 Attestations NPU Medical Necessity Statement*: Inpatient hospitalization is medically necessary and deemed to be the clinically appropriate decision at this time. We will monitor/initiate medications and make changes as indicated. Likely length of stay of 2 days. Coding Level of Care Code Acute Code for Chg Fwd Diagnoses Acute psychosis F23 Bipolar 1 disorder F31.9
[2023-01-16] MEDS: ibuprofen 600 mg Tablet PO (13:48)
[2023-01-16 14:00] VITALS: BP 138/84; PULSE 100; RESP 18; TEMP 36.3; O2SAT 97
[2023-01-16] MEDS: CLONazepam 1 mg Tablet 2 MG PO ×2 (20:29→22:16)
[2023-01-16 21:10] VITALS: BP 124/76; PULSE 93; RESP 18; O2SAT 97
[2023-01-16] MEDS: trazodone 50 mg Tablet PO (22:16)
[2023-01-17] MEDS: nicotine 2 mg Gum BUCCAL ×9 (01:20→20:42)
[2023-01-17] MEDS: acetaminophen 325 mg Tablet 650 MG PO ×3 (01:37→14:15)
[2023-01-17] MEDS: benzocaine 20% 7 gm 1 APPLIC MUCOUS MEM (01:38)
[2023-01-17] MEDS: OLANZapine 5 mg ODT PO ×3 (04:44→17:16)
[2023-01-17 06:00] VITALS: BP 134/73; PULSE 79; RESP 19; TEMP 37; O2SAT 94
[2023-01-17] MEDS: paliperidone ER 6 mg Tablet PO (08:10)
[2023-01-17] MEDS: ibuprofen 600 mg Tablet PO ×2 (08:13→19:11)
--- NOTE | 2023-01-17 12:21 | W.PM.NPUPNS ---
Subjective NPU Subjective: Patient presented today reporting that things were going fine.He appears pleased with himself that he has been able to avoid poor behavior. He was able to find a rehab that would accept him tomorrow right in line with our plan to discharge. We discussed getting his injection of Invega Sustenna 234 mg IM prior to discharge and he understood and agreed to proceed as is documented in this note. Mental Status Exam MSE Comments: This is an overweight versus obese white male in hospital scrubs with adequate grooming and eye contact. No abnormal movements except for resolving psychomotor agitation. Cooperative with exam in no acute distress. Speech was more normal rate and volume. Mood described as better, affect less energetic. Thought process organized. Thought content: Patient denied suicidal or homicidal ideation, there were no delusions reported or noted. He denied auditory visual hallucinations. Attention and concentration appeared intact and memory was somewhat reliable but none were formally tested. He is alert and oriented x3. Insight, judgment and impulse control limited, but improving. Vitals/I&O/Wt Last Vital Signs Temp 98.6 F 01/17/23 06:00 Pulse 79 01/17/23 06:00 Resp 19 H 01/17/23 06:00 BP 134/73 01/17/23 06:00 Pulse Ox 94 01/17/23 06:00 O2 Del Method Room Air 01/17/23 06:00 Data NPU 01/07/23 00:35 01/07/23 00:35 A&P Assessment and plan (1) Acute psychosis: (2) Bipolar 1 disorder: Plan The patient is a 32-year-old male with a history of bipolar disorder who was admitted last month with a history of worsening mood, increased irritability and agitation and paranoia and switched to the Invega Sustenna injectable returns with apparent manic symptoms on the current Invega dose. 1. Continue current medication. Added 6 mg of Invega in the morning and plan to increase his Invega Sustenna 156 mg IM to Invega Sustenna 234 mg IM moving forward. Give Invega Sustenna 234 mg IM. Started Klonopin 1 mg p.o. nightly to assist with sleep. 2 Continue every 15 minute checks for safety. 3. Encourage individual, group and milieu therapies. 4. Encourage sober living treatment after discharge at the highest level of care to which he is willing to commit. 5. 21-day hold granted 01/14/2023. We discussed discharge on Saturday as patient seems to need some sense of certainty in the target date of discharge is on his behavior was appropriate. Involuntary Hold Information 96 Hour Hold: 96 Hour Involuntary Admission: Yes 96 Hour Hold Ending Date: 01/11/23 96 Hour Hold Ending Time: 00:01 Attestations NPU Medical Necessity Statement*: Inpatient hospitalization is medically necessary and deemed to be the clinically appropriate decision at this time. We will monitor/initiate medications and make changes as indicated. Likely length of stay of 1 days. Coding Level of Care Code Acute Code for Chg Fwd Diagnoses Acute psychosis F23 Bipolar 1 disorder F31.9
[2023-01-17] MEDS: hyDROXYzine 25 mg Capsule 50 MG PO (12:37)
[2023-01-17] MEDS: LORazepam 2 mg Tablet PO (13:56)
[2023-01-17 14:00] VITALS: BP 143/94; PULSE 95; RESP 18; TEMP 36.5; O2SAT 96
--- NOTE | 2023-01-17 14:22 | PC.NURSE ---
Patient was told his mother had a restraining order on him. Patient began screaming because he is going to have to pay an admitted attorneys $1000 to fight it. He continued yelling, but was not verbally abusive with the nurses. Patient talked about calling his mother, but nursing staff suggested he take a bit to absorb everything and calm down before calling her. Patient then began crying. Ativan 2mg PO was administered in addition to practicing deep breathing and attempt to participate in group, which he eventually did.
--- NOTE | 2023-01-17 14:50 | DCPLANNER ---
Imm was given to pt and right explained and copy placed in his file.
[2023-01-17] MEDS: paliperidone palmitate 234 mg Syringe IM (16:48)
[2023-01-17 19:57] VITALS: RESP 18
[2023-01-17] MEDS: trazodone 50 mg Tablet PO (20:42)
[2023-01-17] MEDS: CLONazepam 1 mg Tablet 2 MG PO (20:42)
[2023-01-18] MEDS: nicotine 2 mg Gum BUCCAL ×4 (00:05→06:30)
[2023-01-18] MEDS: CLONazepam 1 mg Tablet 2 MG PO (00:05)
[2023-01-18] MEDS: OLANZapine 5 mg ODT PO (00:13)
[2023-01-18] MEDS: hyDROXYzine 25 mg Capsule 50 MG PO (02:34)
[2023-01-18] MEDS: acetaminophen 325 mg Tablet 650 MG PO (02:56)
[2023-01-18] MEDS: benzocaine 20% 7 gm 1 APPLIC MUCOUS MEM (02:57)
[2023-01-18 06:00] VITALS: BP 121/86; PULSE 98; RESP 16; O2SAT 98
--- NOTE | 2023-01-18 06:43 | W.PM.NPUDCS ---
Diagnoses at Discharge Discharge Diagnosis (1) Acute psychosis: Status: Resolved (2) Bipolar 1 disorder: Status: Acute Reason for Visit Reason for Visit: psychiatric Brief History: History of Present Illness Aj Donald is a 32 year old male who presented to the emergency department with the following report: Chief Complaint: Psychiatric Symptoms Stated Complaint: psychiatric Time Seen by Provider: 01/06/23 22:34 Source: patient and police History of Present Illness:?? 32-year-old male with a history of bipolar disorder.? He had a recent admission after a manic episode.? He required sedation in the ER, along with psychiatric evaluation and treatment.? He presents tonight in handcuffs with law enforcement after an episode of throwing stuff around a family member's house.? When law enforcement showed up, he evidently asked that public service officer to shoot him and kill him.? Police have written affidavit and so has his mother. On my interview, he will not answer questions for me.? He says to me I am not your rell . ? MD complaint: suicidal ideation Onset (ago): hour(s) Duration: constant History of same: Yes Relieving factors: none Exacerbating factors: none Associated psychiatric symptoms: depression and suicidal ideation Associated symptoms: Reports delusions, depression and suicidal ideation; Deny auditory hallucinations, visual hallucinations or homicidal ideation If self harm: admits thoughts of self harm and has plan. He was admitted to the neuropsychiatric unit for definitive treatment of those issues.? He presents today essentially reporting that he feels that he is fine and that this is just a disagreement between he and his mother.? We discussed the fact that he does seem to be a bit elevated in mood and energetic.? We discussed the risks, benefits and alternatives of increasing his Invega and he understood and agreed to proceed as is documented in this note.? He denied any significant addiction issues during the last 4 weeks that he has been out of the hospital and his UDS was only positive for cannabis.? We reviewed his last inpatient evaluation which she agreed was accurate and denied substantive changes.? An excerpt of that evaluation is included below for context. Per his 12/11/2022 [facility] inpatient psychiatric discharge summary: History of Present Illness Aj Donald is a 31 year old male who was admitted after he had presented to the emergency department with his mother.? The patient's mother had reported that the patient had been engaging in unusual behavior such as attempting to warm up bullets in the microwave and stated that he was having more hallucinations and an increase in paranoia.? Patient was admitted to the neuropsychiatric unit for further evaluation and treatment.? The patient had reported that he had been on a routine dose of risperidone Consta 50 mg once every month for helping with his bipolar disorder.? He states that he had indeed been seen at the crisis unit 2 days earlier and had been given a prescription for his risperidone on December 03, 2022.? He states that he had given himself the shot in his muscle appropriately but states that he does not feel as if the medication has been helping as well.? He had endorsed having periods of time where he has high energy and racing thoughts.? He had acknowledged that he had been hospitalized several times in the past in [place] and states that he had recently moved here and has not had any providers to help him with his medication.? He had reported that his thoughts were moving fast and he had been increasingly angry.? He had reported that he had been struggling with sleep recently and endorsed having some abnormal breast growth secondary to his risperidone.? He did at times report that he was hearing voices in his head but did not expand on this information.? He had reported being very suspicious of other people's intent and reported that he had been having problems with managing his anger recently.? He had not endorsed having thoughts of hurting himself or others. Past psychiatric history: He had reported an extensive history of outpatient treatment in [place] for several years with a reported diagnosis of bipolar disorder.? He had reported a past history of trials of medication including oral risperidone and oral Abilify.? He reported several previous inpatient hospitalizations in [place] for the past several years stating that he had been initially hospitalized at the age of 20 with manic episodes. Current psychiatric medications: Risperidone Consta 50 mg intramuscularly every 4 weeks. Substance abuse history: Patient reports no history of alcohol or illicit drug use.? He had endorsed smoking marijuana regularly. Allergies: He has no known drug allergies Surgical history none reported Medical history:none Family psychiatric history: None reported Social history: He reports being born in [facility] and states that he was raised by his mother.? He reports that he had no prior history of sexual physical or emotional abuse.? He reported having done well in school and graduated high school and attended some college.? He had previously reported having been diagnosed with bipolar disorder as a young adult.? He reported no history of legal troubles.? He reports being previously engaged but never .? He states that he is currently not involved in any relationships.? He states he has an 11-year-old daughter that lives with her mother.? 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 He states that he moved to [place] as his mother is currently residing here.? He has siblings that live in [place] and has infrequent contact with them. Hospital Course Hospital Course He slowly acclimated to the individual, group and milieu therapies provided.? He presented with psychosis and he has been transitioned from Consta to Invega Sustenna during his last hospitalization. We discussed the need to increase his Invega and supplemented him with oral medication. He was initially on a 96-hour hold which became a 21-day hold. We transitioned him to the Invega sustenna 234 mg IM injection prior to discharge with good response. He was able to work with the treatment team to assist with outpatient resources.? He had significant difficulty with impulse control during the hospitalization. He had significant improvement and was able to contract for safety, outside the hospital prior to discharge.? During the hospitalization, patient had routine laboratory studies which were within normal limits except for few outliers.? Additionally there was a general medical evaluation which was also within normal limits and revealed no new acute processes. Discharge Summary: At the time of discharge, he denied psychosis or lethality.? Mood and anxiety were well managed.? Patient endorsed a plan to avoid all drugs of abuse and follow-up with the aftercare recommendations of the treatment team.? Patient was evaluated and deemed to be absent credible lethality, and had achieved the maximum benefit from an inpatient hospitalization, so was discharged. Involuntary Hold Information 96 Hour Hold: 96 Hour Involuntary Admission: Yes 96 Hour Hold Ending Date: 01/11/23 96 Hour Hold Ending Time: 00:01 Mental Status Exam MSE Comments: This is an overweight versus obese white male in hospital scrubs with adequate grooming and eye contact. No abnormal movements except for resolving psychomotor agitation. Cooperative with exam in no acute distress. Speech was more normal rate and volume. Mood described as better, I feel ready, affect less energetic. Thought process organized. Thought content: Patient denied suicidal or homicidal ideation, there were no delusions reported or noted. He denied auditory visual hallucinations. Attention and concentration appeared intact and memory was somewhat reliable but none were formally tested. He is alert and oriented x3. Insight, judgment and impulse control limited, but improving. Discharge Data Studies Completed and Pending: Laboratory Results WBC 7.6 10^3/uL (4.0- 10.0) 01/07/23 00:35 RBC 4.81 10^6/uL (4.1 -5.3) 01/07/23 00:35 Hgb 15.3 g/dL (11.7-1 6.6) 01/07/23 00:35 Hct 45.4 % (42.0-52.0 ) 01/07/23 00:35 MCV 94.4 fl (80-94) H 01/07/23 00:35 MCH 31.8 pg (28.0-34. 0) 01/07/23 00:35 MCHC 33.7 g/dL (30.0-3 6.0) 01/07/23 00:35 RDW 12.5 % (12.1-15.1 ) 01/07/23 00:35 Plt Count 307 10^3/cmm (130 -400) 01/07/23 00:35 MPV 9.1 fL (7.4-10.4) 01/07/23 00:35 Neut % (Auto) 66.7 % 01/07/23 00:35 Lymph % (Auto) 19.1 % 01/07/23 00:35 [place] % (Auto) 12.3 % 01/07/23 00:35 Eos % (Auto) 0.5 % 01/07/23 00:35 Baso % (Auto) 0.7 % 01/07/23 00:35 Neut # (Auto) 5.07 10^3/uL (1.8 -7.7) 01/07/23 00:35 Lymph # (Auto) 1.5 10^3/uL (0.8- 4.8) 01/07/23 00:35 [place] # (Auto) 0.9 10^3/uL (0.2- 0.9) 01/07/23 00:35 Eos # (Auto) 0.0 10^3/uL (0.0- 0.8) 01/07/23 00:35 Baso # (Auto) 0.1 10^3/uL (0.0- 0.1) 01/07/23 00:35 Nucleated RBC % (a uto) 0 % 01/07/23 00:35 Nucleated RBCs # 0.0 /100WBC 01/07/23 00:35 Sodium 136 mmol/L (136-1 45) 01/07/23 00:35 Potassium 3.9 mmol/L (3.5-5 .1) 01/07/23 00:35 Chloride 103 mmol/L (98-10 7) 01/07/23 00:35 Carbon Dioxide 20 mmol/L (22-29) L 01/07/23 00:35 Anion Gap 16.9 (5-19) 01/07/23 00:35 BUN 7 mg/dL (6-20) 01/07/23 00:35 Creatinine 0.7 mg/dL (0.7-1. 2) 01/07/23 00:35 GFR Calculation 132.4 mL/min (90- 130) H 01/07/23 00:35 Glucose 80 mg/dL (65-115) 01/07/23 00:35 Calculated Osmolal ity 279 mOsm/kg (285- 295) L 01/07/23 00:35 Calcium 9.3 mg/dL (8.5-10 .5) 01/07/23 00:35 Total Bilirubin 0.4 mg/dL (0.15-1 .2) 01/07/23 00:35 AST 21 U/L (0-40) 01/07/23 00:35 ALT 26 U/L (0-41) 01/07/23 00:35 Alkaline Phosphata se 81 U/L (40-130) 01/07/23 00:35 Total Protein 7.2 g/dL (6.6-8.7 ) 01/07/23 00:35 Albumin 4.4 g/dL (3.5-5.2 ) 01/07/23 00:35 Globulin 2.8 g/dL (1.3-4.6 ) 01/07/23 00:35 Urine Color Colorless (Yello w) 01/06/23 23:10 Urine Appearance Clear (CLEAR) 01/06/23 23:10 Urine pH 5 (5-7) 01/06/23 23:10 Ur Specific Gravit y 1.005 (1.005-1.0 30) 01/06/23 23:10 Urine Protein Neg (Negative) 01/06/23 23:10 Urine Glucose (UA) Norm (Normal) 01/06/23 23:10 Urine Ketones Negative (Negati ve) 01/06/23 23:10 Urine Blood Neg (Negative) 01/06/23 23:10 Urine Nitrate Negative (Negati ve) 01/06/23 23:10 Urine Bilirubin Neg (Negative) 01/06/23 23:10 Urine Urobilinogen Norm mg/dL (Negat cooper) 01/06/23 23:10 Ur Leukocyte Sara ase Negative (Negati ve) 01/06/23 23:10 Urine RBC None /hpf (0-2) 01/06/23 23:10 Urine WBC 0-4 /hpf (0-5) H 01/06/23 23:10 Ur Squamous Epith Cells 0-4 /hpf (0-5) H 01/06/23 23:10 Ur Renal Epithelia l Cell 1 /hpf 01/06/23 23:10 Amorphous Sediment Not Reportable 01/06/23 23:10 Urine Bacteria None /hpf (NONE) 01/06/23 23:10 Ur Oval Fat Bodies Trace /hpf 01/06/23 23:10 Salicylates 4.3 mg/dL (3-10) 01/07/23 00:35 Urine Opiates Scre en Negative ng/mL (N egative) 01/06/23 23:10 Acetaminophen < 5.0 ug/mL (10-3 0) L 01/07/23 00:35 Ur Barbiturates Sc reen Negative ng/mL (N egative) 01/06/23 23:10 Ur Phencyclidine S crn Negative ng/mL (N egative) 01/06/23 23:10 Ur Amphetamines Sc reen Negative ng/mL (N egative) 01/06/23 23:10 U Benzodiazepines Scrn Negative ng/mL (N egative) 01/06/23 23:10 Urine Cocaine Scre en Negative ng/mL (N egative) 01/06/23 23:10 U Marijuana (THC) Screen Positive ng/mL (N egative) H 01/06/23 23:10 Ethyl Alcohol < 10 mg/dL (0-10) 01/07/23 00:35 Vitals: Last Vital Signs Temp 97.7 F 01/17/23 14:00 Pulse 98 01/18/23 06:00 Resp 16 01/18/23 06:00 BP 121/86 01/18/23 06:00 Pulse Ox 98 01/18/23 06:00 O2 Del Method Room Air 01/18/23 06:00 Discharge Plan Discharge Patient Disposition: Home Condition: Stable Prescriptions: New Invega Sustenna 234 mg/1.5 mL syringe 234 mg IM Q30D Qty: 1.5 2RF Rx Instructions: Next injection 02/15/2023 then as directed clonazepam 1 mg Tablet 1 mg PO BEDTIME PRN (Reason: Anxiety) 15 Days Qty: 15 1RF Rx Instructions: Can try to decrease dose moving forward with ultimate plans to discontinue hydroxyzine pamoate 50 mg capsule 50 mg PO Q6H PRN (Reason: Anxiety) 30 Days Qty: 60 1RF trazodone 50 mg Tablet 50 mg PO BEDTIME PRN (Reason: Sleep) 30 Days Qty: 30 1RF pantoprazole 40 mg Tablet,Delayed Release (Dr/Ec) 40 mg PO DAILY PRN (Reason: Heartburn) 30 Days Qty: 30 1RF Discontinued Invega Sustenna 156 mg/mL syringe 156 mg IM Q30D Qty: 1 2RF Rx Instructions: Next injection 12/17/2022 loading dose IM deltoid. Then 01/14/2023 then as directed monthly Discharge Orders: Discharge Order (Routine); Ordered 01/18/23 Ordered By: Monty Acuña Referrals: [facility] Re[facility] [Other] - 03/27/23 12:40 pm (Psychiatry appointment with Dr. Reyes. Will call for sooner apt if they have a cancellation.) [facility] [Other] - 02/01/23 9:30 am (Intake appointment) [facility] [Other] [facility] [Other] - 01/18/23 10:00 am (Sober living home) Discharge Diet: Regular Discharge Activity: Resume usual activity Patient Instructions: Clonazepam (By mouth), Trazodone (By mouth), Paliperidone (By injection), Bipolar Disorder (DC), Suicide Prevention (DC), Opioid Safety Discharge Attestations NPU Time Spent in Discharge Care*: less than 30 min Specific Discharge Activities: Specific discharge activities: educating patient, discussing with pillowcase folder/social workers/dc planners, documenting/other paperwork and evaluating patient/reviewing data Coding Level of Care Code Acute Chg FW DC note Diagnoses Acute psychosis F23 Bipolar 1 disorder F31.9
[2023-01-18 07:12] VITALS: BP 121/86; PULSE 98; RESP 16; TEMP 36.6; O2SAT 98
== END 2023-01-18 07:50 | disposition home or self-care (01) | DRG 885 ==
LOC: ER 01-07 00:34 → NP 01-07 02:12
PROVIDERS: Admitting Provider Psychiatry & Neurology Psychiatry; Emergency Provider Emergency Medicine; Visit Provider Psychiatry & Neurology Psychiatry
DX: F31.2 Bipolar disorder, current episode manic severe with psychotic features (principal); Z63.9 Problem related to primary support group, unspecified; Z62.820 Parent-biological child conflict
CPT/HCPCS: 80053; 80306; 80307; 81001; 85025; 96372; 97150; 97165; 99285; J1200; J1630; J2060; J3486; J3490; Q0162; Q0163

== ENCOUNTER 2023-02-25 00:19 | Emergency (ER) | payer MEDICARE, SELFPAY ==
[2023-02-25 00:29] VITALS: BP 125/77; PULSE 98; RESP 16; TEMP 36.4; O2SAT 99; BMI 34.9
[2023-02-25 00:33] VITALS: BP 107/76; O2SAT 99
--- NOTE | 2023-02-25 00:34 | ED_ITS ---
HPI - Abdominal Pain General: Chief Complaint: Abdominal Pain Stated Complaint: possible colonitis Time Seen by Provider: 02/25/23 00:28 History of Present Illness: 32-year-old male patient comes in today with left side abdominal pain. Patient's had a history of colitis and these are similar symptoms that he has had before. Patient reports diarrhea stools. Patient appears nontoxic. Patient has mental health history which he takes medications routinely for. Associated Symptoms: Reports diarrhea; Denies fever(s) Review of Systems General: Reports: 10 or more systems reviewed and unremarkable except in HPI and below Const: Denies: fever(s) Card: Denies: chest pain Resp: Denies: dyspnea GI: Reports: abdominal pain and diarrhea PFSH ED PFSH: Medical History Bipolar 1 disorder Psychiatric care Social History Smoking and tobacco status: current every day smoker Substance/Drug Use: never Physical Exam Const: COMMON NORMALS: alert HENMT: COMMON NORMALS: normocephalic HEAD & SCALP: normocephalic Neck/C-Spine: COMMON NORMALS: full ROM Resp: COMMON NORMALS: normal respiratory effort and clear to auscultation bilaterally AUSCULTATION: clear to auscultation bilaterally Cardio: COMMON NORMALS: regular rate and regular rhythm RATE: regular rate RHYTHM: regular rhythm GI: COMMON NORMALS: Soft to palpation PALPATION: Yes Soft to palpation and Yes Tenderness to palpation present (GI) Details: LLQ : COMMON NORMALS: Yes no CVA tenderness BLADDER/KIDNEY EXAM: Yes no CVA tenderness Back/Pelvis: COMMON NORMALS: no CVA tenderness and thoracic and lumbar spine normal to inspection Extremity: COMMON NORMALS: no pedal edema Neuro: SENSORIUM/ORIENTATION: Yes alert Skin: COMMON NORMALS: turgor normal GENERAL SKIN EXAM: turgor normal Course Vital Signs: Vital signs: Vital Signs Temperature 97.6 F 02/25/23 00:29 Pulse Rate 68 02/25/23 01:27 Respiratory Rate 18 02/25/23 01:27 Blood Pressure 119/66 02/25/23 01:27 Pulse Oximetry 96 02/25/23 01:27 Oxygen Delivery Me thod Room Air 02/25/23 01:08 MDM - Abdominal Pain Medical Decision Making 32-year-old male patient comes in today for complaints of left abdominal pain. Patient reports history of colon-itis. On exam abdomen soft with left lower quadrant tenderness. Bowel sounds are active. Skin is warm and dry. Vital signs are normal. Differential diagnosis includes but not limited to diverticulosis, colitis, enteritis, gastritis, gallbladder disease, appendici tis. Laboratory values noted some mild leukocytosis at 13,000. CT of the abdomen pelvis noted no acute inflammatory process. No signs of surgical abdomen is noted at this time. Patient was treated with IV fluids for his diarrhea and 1 dose of fentanyl 50 mcg. Patient was released to home with r ecommendations to follow-up with primary care for further treatment and evaluation. Lab Data 02/25/23 00:40 02/25/23 00:40 Labs/Radiology: Radiology Impressions Abdomen/Pelvis CT 02/25/23 00:39 IMPRESSION: 1. Negative for acute inflammatory process in the abdomen or pelvis. 2. Hepatic steatosis. 3. Small umbilical hernia containing omentum without bowel. Laboratory Results WBC 13.5 10^3/uL (4.0-10.0) H 02/25/23 00:40 RBC 4.71 10^6/uL (4.1-5.3) 02/25/23 00:40 Hgb 14.6 g/dL (11.7-16.6) 02/25/23 00:40 Hct 43.2 % (42.0-52.0) 02/25/23 00:40 MCV 91.7 fl (80-94) 02/25/23 00:40 MCH 31.0 pg (28.0-34.0) 02/25/23 00:40 MCHC 33.8 g/dL (30.0-36.0) 02/25/23 00:40 RDW 11.9 % (12.1-15.1) L 02/25/23 00:40 Plt Count 323 10^3/cmm (130-400) 02/25/23 00:40 MPV 9.0 fL (7.4-10.4) 02/25/23 00:40 Neut % (Auto) 70.1 % 02/25/23 00:40 Lymph % (Auto) 18.7 % 02/25/23 00:40 [place] % (Auto) 9.4 % 02/25/23 00:40 Eos % (Auto) 1.0 % 02/25/23 00:40 Baso % (Auto) 0.4 % 02/25/23 00:40 Neut # (Auto) 9.42 10^3/uL (1.8-7.7) H 02/25/23 00:40 Lymph # (Auto) 2.5 10^3/uL (0.8-4.8) 02/25/23 00:40 [place] # (Auto) 1.3 10^3/uL (0.2-0.9) H 02/25/23 00:40 Eos # (Auto) 0.1 10^3/uL (0.0-0.8) 02/25/23 00:40 Baso # (Auto) 0.1 10^3/uL (0.0-0.1) 02/25/23 00:40 Nucleated RBC % (auto) 0 % 02/25/23 00:40 Nucleated RBCs # 0.0 /100WBC 02/25/23 00:40 Sodium 137 mmol/L (136-145) 02/25/23 00:40 Potassium 3.8 mmol/L (3.5-5.1) 02/25/23 00:40 Chloride 102 mmol/L (98-107) 02/25/23 00:40 Carbon Dioxide 24 mmol/L (22-29) 02/25/23 00:40 Anion Gap 14.8 (5-19) 02/25/23 00:40 BUN 10 mg/dL (6-20) 02/25/23 00:40 Creatinine 0.8 mg/dL (0.7-1.2) 02/25/23 00:40 GFR Calculation 113.5 mL/min (90-130) 02/25/23 00:40 Glucose 101 mg/dL (65-115) 02/25/23 00:40 Calculated Osmolality 283 mOsm/kg (285-295) L 02/25/23 00:40 Calcium 9.6 mg/dL (8.5-10.5) 02/25/23 00:40 Total Bilirubin 0.5 mg/dL (0.15-1.2) 02/25/23 00:40 AST 49 U/L (0-40) H 02/25/23 00:40 ALT 38 U/L (0-41) 02/25/23 00:40 Alkaline Phosphatase 98 U/L (40-130) 02/25/23 00:40 Total Protein 7.3 g/dL (6.6-8.7) 02/25/23 00:40 Albumin 4.5 g/dL (3.5-5.2) 02/25/23 00:40 Globulin 2.8 g/dL (1.3-4.6) 02/25/23 00:40 Lipase 21 U/L (13-60) 02/25/23 00:40 Discharge Plan Discharge Patient Disposition: Home Clinical Impression: Diarrhea Qualifiers: Diarrhea type: presumed infectious Qualified Code(s): R19.7 - Diarrhea, unspecified Condition: Stable Prescriptions: No Action Invega Sustenna 234 mg/1.5 mL syringe 234 mg IM Q30D Qty: 1.5 2RF Rx Instructions: Next injection 02/15/2023 then as directed clonazepam 1 mg Tablet 1 mg PO BEDTIME PRN (Reason: Anxiety) 15 Days Qty: 15 1RF Rx Instructions: Can try to decrease dose moving forward with ultimate plans to discontinue hydroxyzine pamoate 50 mg capsule 50 mg PO Q6H PRN (Reason: Anxiety) 30 Days Qty: 60 1RF trazodone 50 mg Tablet 50 mg PO BEDTIME PRN (Reason: Sleep) 30 Days Qty: 30 1RF pantoprazole 40 mg Tablet,Delayed Release (Dr/Ec) 40 mg PO DAILY PRN (Reason: Heartburn) 30 Days Qty: 30 1RF Discharge Orders: Discharge ED (Routine); Ordered 02/25/23 Ordered By: Jacobo Ramos Discharge Diet: Usual diet Discharge Activity: Increase activity as tolerated Patient Instructions: Acute Diarrhea (ED) Activity Restrictions/Additional Instructions: Drink plenty of water and fluids. Use acetaminophen and or ibuprofen as needed for pain. Try to drink some electrolyte solution especially with diarrhea. You may use [id number] Imodium for your diarrhea stools. Follow-up with primary care. Return to ED for new concerns or worsening symptoms such as fever, blood in vomit or stool. Coding Level of Care Code ED Venereal Disease Investigator for Clive Navarrete
--- NOTE | 2023-02-25 00:39 | CTR_ITS ---
PROCEDURE INFORMATION: Exam: CT Abdomen And Pelvis With Contrast Exam date and time: 02/25/2023 12:52 AM Age: 32 years old Clinical indication: Abdominal pain; Generalized; Additional info: Abd pain, HX of colonitis , R/O abscess TECHNIQUE: Imaging protocol: Computed tomography of the abdomen and pelvis with contrast. Radiation optimization: All CT scans at this facility use at least one of these dose optimization techniques: automated exposure control; mA and/or kV adjustment per patient size (includes targeted exams where dose is matched to clinical indication); or iterative reconstruction. Contrast material: OMNI 350; Contrast volume: 100 ml; Contrast route: INTRAVENOUS (IV); REPORTING DATA: Count of CT and Cardiac NM exams in prior 12 months: This patient has received 0 known CTs and 0 known cardiac nuclear medicine studies in the 12 months prior to the current study. COMPARISON: No relevant prior studies available. RADIATION DOSE METRICS: Total DLP (mGy-cm): 1149.45 FINDINGS: Liver: Hepatic steatosis. Gallbladder and bile ducts: Normal. No calcified stones. No ductal dilation. Pancreas: Normal. No ductal dilation. Spleen: Normal. No splenomegaly. Adrenal glands: Normal. No mass. Kidneys and ureters: Normal. No hydronephrosis. Stomach and bowel: Unremarkable. No obstruction. No mucosal thickening. Appendix: No evidence of appendicitis. Intraperitoneal space: Unremarkable. No free air. No significant fluid collection. Vasculature: Unremarkable. No abdominal aortic aneurysm. Lymph nodes: Unremarkable. No enlarged lymph nodes. Urinary bladder: Unremarkable as visualized. Reproductive: Unremarkable as visualized. Bones/joints: Unremarkable. No acute fracture. Soft tissues: Small umbilical hernia containing omentum without bowel. CT/CT abdomen pelvis w con* [id number] IMPRESSION: 1. Negative for acute inflammatory process in the abdomen or pelvis. 2. Hepatic steatosis. 3. Small umbilical hernia containing omentum without bowel.
[2023-02-25 00:47] LABS: Basophils # 0.1 10^3/uL (0.0-0.1); Basophils % 0.4 %; Eosinophils # 0.1 10^3/uL (0.0-0.8); Hematocrit 43.2 % (42.0-52.0); Hemoglobin 14.6 g/dL (11.7-16.6); Lymphocytes # 2.5 10^3/uL (0.8-4.8); Lymphocytes % 18.7 %; Mean Corpuscular HGB Conc 33.8 g/dL (30.0-36.0); Mean Corpuscular Volume 91.7 fl (80-94); Monocytes # 1.3 10^3/uL (0.2-0.9); Monocytes % 9.4 %; Neutrophils # 9.42 10^3/uL (1.8-7.7); Neutrophils % 70.1 %; Nucleated Red Blood Cells % 0 %; Platelet Count 323 10^3/cmm (130-400); Red Blood Count 4.71 10^6/uL (4.1-5.3); Red Cell Distribution Width 11.9 % (12.1-15.1); White Blood Count 13.5 10^3/uL (4.0-10.0)
[2023-02-25] MEDS: sodium chloride 0.9% 1,000 ML 999 ML IV (00:47)
[2023-02-25] MEDS: iohexol 350 mg/mL 500 mL Btl (per mL) IV (00:56)
[2023-02-25 01:05] VITALS: RESP 16
[2023-02-25] MEDS: fentaNYL 50 mcg/mL INJ 2mL IVP (01:05)
[2023-02-25 01:08] VITALS: BP 119/66; PULSE 86; RESP 16; O2SAT 95
[2023-02-25 01:15] LABS: Alanine Aminotransferase 38 U/L (0-41); Albumin Level 4.5 g/dL (3.5-5.2); Alkaline Phosphatase 98 U/L (40-130); Anion Gap 14.8 (5-19); Aspartate Amino Transferase 49 U/L (0-40); Blood Urea Nitrogen 10 mg/dL (6-20); Calcium 9.6 mg/dL (8.5-10.5); Carbon Dioxide 24 mmol/L (22-29); Chloride 102 mmol/L (98-107); Globulin 2.8 g/dL (1.3-4.6); Glomerular Filtration Rate 113.5 mL/min (90-130); Glucose 101 mg/dL (65-115); Lipase 21 U/L (13-60); Osmolality Calculated 283 mOsm/kg (285-295); Potassium 3.8 mmol/L (3.5-5.1); Sodium 137 mmol/L (136-145); Total Bilirubin 0.5 mg/dL (0.15-1.2); Total Protein 7.3 g/dL (6.6-8.7)
[2023-02-25 01:27] VITALS: BP 119/66; PULSE 68; RESP 18; O2SAT 96
--- NOTE | 2023-03-01 11:50 | DCPLANNER ---
ehs manager called patient due to no primary care physician - this line was placed out of service - no answer at this time.
== END 2023-02-25 01:27 | disposition home or self-care (01) ==
PROVIDERS: Emergency Provider Nurse Practitioner Family
DX: R19.7 Diarrhea, unspecified (principal); F17.210 Nicotine dependence, cigarettes, uncomplicated
CPT/HCPCS: 74177; 80053; 83690; 85025; 96361; 96374; 99285; J3010; J7030; Q9967

== ENCOUNTER 2023-02-25 20:23 | Emergency (ER) | payer MEDICARE, SELFPAY ==
[2023-02-25 20:27] VITALS: BP 130/75; PULSE 106; RESP 16; TEMP 36.7; O2SAT 97; BMI 35.6
--- NOTE | 2023-02-25 20:35 | W.ED.EXTPRO ---
HPI - Extremity Problem General: Chief complaint: Extremity Injury, Lower Stated complaint: bilateral feet pain Time Seen by Provider: 02/25/23 20:35 History of Present Illness: 32-year-old male patient comes in today with bilateral foot pain. Patient has been walking a lot due to his car breaking down. Patient at this time resides in the intermediate. Patient appears nontoxic. No obvious injury is noted. Patient denies injury. Associated symptoms: Deny chest pain Review of Systems General: Reports: 10 or more systems reviewed and unremarkable except in HPI and below Card: Denies: chest pain Resp: Denies: dyspnea GI: Denies: vomiting : Denies: flank pain Musc: Reports: extremity pain PFSH ED PFSH: Medical History Bipolar 1 disorder Psychiatric care Social History Smoking and tobacco status: current every day smoker Substance/Drug Use: never Physical Exam Const: COMMON NORMALS: alert HENMT: COMMON NORMALS: normocephalic HEAD & SCALP: normocephalic Neck/C-Spine: COMMON NORMALS: full ROM Resp: COMMON NORMALS: normal respiratory effort Cardio: COMMON NORMALS: regular rate RATE: regular rate Extremity: COMMON NORMALS: normal to inspection Neuro: SENSORIUM/ORIENTATION: Yes alert Skin: COMMON NORMALS: turgor normal GENERAL SKIN EXAM: turgor normal Course Vital Signs: Vital signs: Vital Signs Temperature 98.0 F 02/25/23 20:27 Pulse Rate 106 H 02/25/23 20:27 Respiratory Rate 16 02/25/23 20:27 Blood Pressure 130/75 02/25/23 20:27 Pulse Oximetry 97 02/25/23 20:27 Oxygen Delivery Me thod Room Air 02/25/23 20:27 MDM - Extremity (Nontraumatic) Medical Decision Making 32-year-old male patient comes in today with complaints of pain to bilateral feet with some numbness at times. Patient reports symptoms were mainly today. Patient has been walking a lot more lately due to his vehicle not working. On exam bilateral feet appear uninjured without any signs of bruising or swelling or deformity. Vital signs are normal. Differential diagnosis includes but not limited to neuropathy, tarsal tunnel syndrome, planter fasciitis, osteoarthritis. Reviewed exam with patient with recommendations for treatment with rest and increase activity as tolerated. Patient was given 1 dose of acetaminophen and ibuprofen for his acute pain. Patient was recommended to follow-up with primary care for further instructions. Discharge Plan Discharge Patient Disposition: Home Clinical Impression: Bilateral foot pain Condition: Stable Prescriptions: No Action Invega Sustenna 234 mg/1.5 mL syringe 234 mg IM Q30D Qty: 1.5 2RF Rx Instructions: Next injection 02/15/2023 then as directed clonazepam 1 mg Tablet 1 mg PO BEDTIME PRN (Reason: Anxiety) 15 Days Qty: 15 1RF Rx Instructions: Can try to decrease dose moving forward with ultimate plans to discontinue hydroxyzine pamoate 50 mg capsule 50 mg PO Q6H PRN (Reason: Anxiety) 30 Days Qty: 60 1RF trazodone 50 mg Tablet 50 mg PO BEDTIME PRN (Reason: Sleep) 30 Days Qty: 30 1RF pantoprazole 40 mg Tablet,Delayed Release (Dr/Ec) 40 mg PO DAILY PRN (Reason: Heartburn) 30 Days Qty: 30 1RF Discharge Orders: Discharge ED (Routine); Ordered 02/25/23 Ordered By: Jacobo Ramos Discharge Diet: Usual diet Discharge Activity: Increase activity as tolerated Patient Instructions: Metatarsalgia (DC) Activity Restrictions/Additional Instructions: Get plenty of rest. Elevate feet is much as possible. Use acetaminophen and ibuprofen for pain. Follow-up with primary care for further instructions. Coding Level of Care Code ED [employer] Developer for Clive Navarrete
[2023-02-25] MEDS: acetaminophen 500 mg Tablet 1000 MG PO (20:50)
[2023-02-25] MEDS: ibuprofen 800 mg tablet PO (20:50)
--- NOTE | 2023-03-01 12:09 | DCPLANNER ---
manager environmental health and safety called patient due to no primary care physician - no answer at this time.
== END 2023-02-25 20:51 | disposition home or self-care (01) ==
PROVIDERS: Emergency Provider Nurse Practitioner Family
DX: M79.672 Pain in left foot (principal); M79.671 Pain in right foot
CPT/HCPCS: 99283